=== PATIENT | female | born 1945 | race Caucasian/White ===

== ENCOUNTER 2018-08-03 00:25 | Outpatient (CLI) | payer MEDICARE, OTHER, SELFPAY ==
--- NOTE | 2018-08-03 09:10 | DI.US_ITS ---
SYMPTOM/DIAGNOSIS: H/O OVARIAN CYST, Z87.42, RUQ ABD PAIN, R10.11 ABDOMEN ULTRASOUND: The visualized liver parenchyma is normal in appearance. Note is made of cholelithiasis. No evidence of gallbladder wall thickening, pericholecystic fluid collection or biliary dilatation. Pancreas appears intact as visualized. Abdominal aorta and IVC are of normal diameter. Kidneys are unremarkable in appearance as is the spleen. IMPRESSION: Cholelithiasis. PELVIC ULTRASOUND: Pelvic ultrasound was performed transabdominally only. Please see the Pelvic ultrasound worksheet for measurements of the pelvic structures. There is a 26 by 33 mm. in diameter right ovarian cyst which appears to be a simple cyst. No doppler abnormality of the right ovary. Left ovary unremarkable in appearance. Endometrial stripe is about 3 mm. in thickness and appears homogeneous. No free fluid identified in the cul-de-sac. CONCLUSION: Right ovarian cyst which appears to be a simple cyst measuring about 3.3 cm. in greatest diameter. Visualization of portions of the wall of the apparent cyst is suboptimal. Size of the cyst is unchanged from previous examination of 12/26/15.
== END 2018-08-03 00:45 ==
PROVIDERS: PCP Family Medicine; Visit Provider Family Medicine
DX: R10.11 Right upper quadrant pain (principal); N83.291 Other ovarian cyst, right side; K80.20 Calculus of gallbladder without cholecystitis without obstruction
CPT/HCPCS: 76700; 76856

== ENCOUNTER → 2018-10-15 09:45 | Outpatient (BNVA) | payer MEDICARE, OTHER, SELFPAY | PROVIDERS: PCP Family Medicine; Referring Provider Family Medicine; Visit Provider Surgery | DX: K80.50 Calculus of bile duct without cholangitis or cholecystitis without obstruction (principal) | CPT/HCPCS: 99203 ==

== ENCOUNTER 2019-04-15 01:58 | Outpatient (CLI) | payer MEDICARE, OTHER, SELFPAY ==
--- NOTE | 2019-04-15 15:34 | DI.RAD_ITS ---
EXAM XR RIBS LT W PA LAT CHEST INDICATION: LT SIDED RIB PAIN R07.81. COMPARISON: LEFT RIBS TO INCLUDE CXR from 11/07/2015 TECHNIQUE: 2D digital imaging was performed. FINDINGS: The heart size is normal. The aorta is tortuous, unchanged. The lungs appear clear. No pneumothora x, infiltrate or effusion is seen. A marker was placed over the lateral left lower chest in the area of the patient's pain. The lower ribs are suboptimally penetrated. No fracture is visible. Scolio sis and degenerative changes are noted in the thoracolumbar spine. IMPRESSION: No acute abnormality.
== END 2019-04-15 02:18 ==
PROVIDERS: PCP Family Medicine; Visit Provider Family Medicine
DX: R07.81 Pleurodynia (principal)
CPT/HCPCS: 71046; 71100

== ENCOUNTER 2019-08-02 11:03 | Outpatient (CLI) | payer MEDICARE, OTHER, SELFPAY ==
--- NOTE | 2019-08-02 | DI.RAD_ITS ---
EXAM: XR CERVICAL SPINE COMP 4-5V CLINICAL HISTORY: NECK PAIN, M54.2 COMPARISON: No exams were available for comparison FINDINGS: Five views were obtained. There is straightening of the cervical lordosis. Prevertebral soft tissue s appear intact and tracheolaryngeal structures appear grossly unremarkable. There is disc space narrowing at C 5-6 and C6-7. There are prominent hypertrophic changes involving the vertebral endplates particularly at C5-6 and C6-7. Moderate facet hypertrophic degenerative leo ges are noted throughout the cervical region. The neural foramina appear fairly well maintained. No other significant bony abnormality seen. IMPRESSION: Degenerative changes of the cervical spine as described above, straightening of the cervical lordosis may indicate muscle spasm.
== END 2019-08-02 11:23 ==
PROVIDERS: PCP Family Medicine; Visit Provider Family Medicine
DX: M54.2 Cervicalgia (principal); M50.322 Other cervical disc degeneration at C5-C6 level; M50.323 Other cervical disc degeneration at C6-C7 level; M47.812 Spondylosis without myelopathy or radiculopathy, cervical region
CPT/HCPCS: 72050

== ENCOUNTER 2019-11-10 13:34 | Outpatient (REF) | payer MEDICARE, OTHER, SELFPAY ==
[2019-11-14 10:46] LABS: Syphilis Serology (RPR) Negative (Negative)
[2019-11-14 12:20] LABS: HIV-1/2 Ag & Ab Screen Negative (Negative)
[2019-11-14 12:32] LABS: Hepatitis C Ab w Rflx HCV PCR Negative (Negative)
[2019-11-14 14:45] LABS: Chlamydia Result Negative (Negative); GC Result Negative (Negative)
== END 2019-11-10 13:54 ==
LOC: NCHCN 13:34
PROVIDERS: PCP Family Medicine; Visit Provider Family Medicine
DX: Z11.3 Encounter for screening for infections with a predominantly sexual mode of transmission (principal); Z11.4 Encounter for screening for human immunodeficiency virus [HIV]; Z11.59 Encounter for screening for other viral diseases
CPT/HCPCS: 86803; 87389; 87491; 87591; 86592

== ENCOUNTER 2019-12-13 12:49 | Outpatient (REF) | payer MEDICARE, OTHER, SELFPAY ==
[2019-12-15 15:35] LABS: SARS-CoV-2 RNA Undetected (Undetected); SARS-CoV-2 Specimen Source Nasopharynx
== END 2019-12-13 13:09 ==
LOC: NCHCN 12:49
PROVIDERS: PCP Family Medicine; Visit Provider Nurse Practitioner Family
DX: Z11.59 Encounter for screening for other viral diseases (principal)
CPT/HCPCS: U0003

== ENCOUNTER 2019-12-20 01:29 | Outpatient (CLI) | payer MEDICARE, OTHER, SELFPAY ==
--- NOTE | 2019-12-20 13:35 | DI.RAD_ITS ---
EXAM: XR TIB/FIB LT CLINICAL HISTORY: LT LOWER LEG PAIN,M79.669. TECHNIQUE: 2D digital imaging was performed COMPARISON: No exams were available for comparison FINDINGS: BONES: No acute fracture is present. No bony destructive lesion is seen. Visualized portion of knee a nd ankle joints are unremarkable. Small spur at the plantar surface of the calcaneus. SOFT TISSUE: Normal. IMPRESSION: Unremarkable radiographs of the left tibia and fibula. DATA REPOSITORY: RADIATION DOSE DELIVERED:
== END 2019-12-20 01:49 ==
PROVIDERS: PCP Family Medicine; Visit Provider Family Medicine
DX: M79.662 Pain in left lower leg (principal)
CPT/HCPCS: 73590

== ENCOUNTER → 2020-01-06 09:00 | Outpatient (BNVA) | payer MEDICARE, OTHER, SELFPAY | PROVIDERS: PCP Family Medicine; Referring Provider Family Medicine; Visit Provider Student in an Organized Health Care Education/Training Program | DX: S80.12XA Contusion of left lower leg, initial encounter (principal); W22.8XXA Striking against or struck by other objects, initial encounter | CPT/HCPCS: 99203; 99214 ==

== ENCOUNTER 2020-12-11 13:20 | Outpatient (CLI) | payer MEDICARE, OTHER, SELFPAY ==
--- NOTE | 2020-12-11 | DI.RAD_ITS ---
Exam(s) XR KNEE RT 3V AP,LAT,JULIANNA XR TIB/FIB RT EXAM: XR KNEE RT 3V AP,LAT,JULIANNA CLINICAL HISTORY: RT KNEE PAIN, M25.561 TECHNIQUE: COMPARISON: CR XR TIB/FIB RT from 12/11/2020 CR XR TIB/FIB RT from 12/11/2020 FINDINGS: Three views of the knee and two views of the leg were obtained. There may be slight narrowing of the cartilaginous joint space of the medial tibiofemoral joint. Suspect narrowing of patellofemoral car tilaginous joint space as well. There is a small knee joint effusion. There are mild marginal osteophytes seen involving all 3 joints of the knee. No other bony abnormali ty seen involving the knee. Radiographs of the leg show unremarkable appearance of the tibia and fib rosemarie. 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 RADIATION DOSE DELIVERED: Total DLP
== END 2020-12-11 13:40 ==
PROVIDERS: PCP Family Medicine; Visit Provider Family Medicine
DX: M17.11 Unilateral primary osteoarthritis, right knee (principal)
CPT/HCPCS: 73562; 73590

== ENCOUNTER → 2021-01-28 11:05 | Outpatient (BNVA) | payer MEDICARE, OTHER, SELFPAY | PROVIDERS: PCP Family Medicine; Referring Provider Family Medicine; Visit Provider Student in an Organized Health Care Education/Training Program | DX: M23.91 Unspecified internal derangement of right knee (principal); X50.9XXA Other and unspecified overexertion or strenuous movements or postures, initial encounter | CPT/HCPCS: 99213 ==

== ENCOUNTER 2021-02-07 02:11 | Outpatient (CLI) | payer MEDICARE, OTHER, SELFPAY ==
--- NOTE | 2021-02-07 08:30 | DI.MRI_ITS ---
Exam(s) MR LOWER JOINT RT WO EXAM: MR LOWER JOINT RT WO CLINICAL HISTORY: Rt knee vs tib/fib injury,INTERNAL DERANGEMENT RT KNEE,INSUFFICIENCY FX,. TECHNIQUE: Multiplanar multisequence MRI was performed. COMPARISON: CR XR KNEE RT 3V AP,LAT,JULIANNA from 12/11/2020 FINDINGS: BONES: No evidence of a fracture. Bone contusions involving the medial aspects of the medial femoral condyle and medial tibial plateau. JOINTS: Cartilage thinning is seen in the overlying the medial femoral condyle. Periarticular spurri ng is seen both in the medial lateral femoral tibial joint spaces. There is also cartilage thinning and periarticular spurring at the patellofemoral joint. There is a moderate joint effusion. TENDONS: Extensor mechanism: Unremarkable. Medial retinaculum: Unremarkable. Lateral retinaculum: Unremarkable. Popliteus: The popliteus tendon appears intact. There is hyperintense signal seen in the mid poplite us muscle. The findings are suspicious for a intramuscular tear. MUSCLES: Please see the above discussion. MENISCI: There is body of the posterior horn of the medial meniscus. (Series [id number], image 28). The lateral meniscus is unremarkable. SOFT TISSUES: There is edema seen around the knee particularly the prepatellar soft tissues. No foca l fluid collection is seen. LIGAMENTS: Anterior Cruciate: Unremarkable. Posterior Cruciate: Unremarkable. Medial Collateral:There is fluid edema seen around the medial collateral ligament which may represent a sprain. Lateral Collateral: Unremarkable. OTHER: IMPRESSION: 1. Abnormal signal in the posterior horn of the medial meniscus suspicious for tear. 2. MCL sprain. 3. Hyperintense signal seen in the popliteus muscle suspicious for tear. Please correlate with the p atient's clinical history. 4. Degenerative changes in the knee. 5. Marrow contusions in the medial femoral condyle and medial tibial plateau. No fracture is identif ied. DATA REPOSITORY:
== END 2021-02-07 02:31 ==
PROVIDERS: PCP Family Medicine; Visit Provider Physician Assistant Surgical
DX: M17.11 Unilateral primary osteoarthritis, right knee; S83.411A Sprain of medial collateral ligament of right knee, initial encounter; T14.8XXA Other injury of unspecified body region, initial encounter; X58.XXXA Exposure to other specified factors, initial encounter
CPT/HCPCS: 73721

== ENCOUNTER → 2021-02-13 09:27 | Outpatient (BNVA) | payer MEDICARE, OTHER, SELFPAY | PROVIDERS: PCP Family Medicine; Referring Provider Family Medicine; Visit Provider Physician Assistant | DX: M17.11 Unilateral primary osteoarthritis, right knee (principal); M23.91 Unspecified internal derangement of right knee | CPT/HCPCS: 20610; J1040 ==

== ENCOUNTER → 2021-04-01 09:49 | Outpatient (BNVA) | payer MEDICARE, OTHER, SELFPAY | PROVIDERS: PCP Family Medicine; Referring Provider Family Medicine; Visit Provider Student in an Organized Health Care Education/Training Program | DX: M23.91 Unspecified internal derangement of right knee (principal); M17.11 Unilateral primary osteoarthritis, right knee; Z98.890 Other specified postprocedural states | CPT/HCPCS: 99213 ==

== ENCOUNTER → 2021-04-29 10:04 | Outpatient (BNVA) | payer MEDICARE, OTHER, SELFPAY | PROVIDERS: PCP Family Medicine; Referring Provider Family Medicine; Visit Provider Student in an Organized Health Care Education/Training Program | DX: M17.11 Unilateral primary osteoarthritis, right knee (principal); M23.91 Unspecified internal derangement of right knee | CPT/HCPCS: 99213 ==

== ENCOUNTER → 2021-10-15 00:27 | Outpatient (CLI) | payer MEDICARE, OTHER, SELFPAY ==
--- NOTE | 2021-10-15 | DI.RAD_ITS ---
Exam(s) XR KNEE LT 3V AP,LAT,JULIANNA EXAM: XR KNEE LT 3V AP,LAT,JULIANNA CLINICAL HISTORY: LT KNEE PAIN, M25.562. TECHNIQUE: 2D digital imaging was performed. Three views. COMPARISON: none FINDINGS: BONES: No acute fracture is present. No bony destructive lesion is seen. JOINTS: There is moderate narrowing of the medial femoral tibial joint space, mild periarticular spur ring and sclerosis. There is minimal spurring at the patellofemoral joint. No definite joint effus ion.. No joint effusion is seen. SOFT TISSUE: Normal. IMPRESSION: Moderate degenerative changes of the medial femoral tibial joint. DATA REPOSITORY: RADIATION DOSE DELIVERED:
== END ==
PROVIDERS: PCP Family Medicine; Visit Provider Family Medicine
DX: M25.562 Pain in left knee (principal); M17.11 Unilateral primary osteoarthritis, right knee
CPT/HCPCS: 73562

== ENCOUNTER 2021-11-04 03:30 | Outpatient (CLI) | payer MEDICARE, OTHER, SELFPAY ==
[2021-11-04 12:35] LABS: ALT 31 U/L (14-59); AST 18 U/L (15-37); Albumin 4.1 g/dL (3.4-5.0); Alkaline Phosphatase 82 U/L (46-116); Anion Gap 6.2 mmol/L (3-11); BUN 25 mg/dL (7-18); Bilirubin, Total 0.6 mg/dL (0.2-1.0); CO2 28.8 mmol/L (21.0-32.0); CREATININE 0.5 mg/dL (0.55-1.02); Calcium 9.2 mg/dL (8.5-10.1); Calculated LDL 143 mg/dL (<100); Chloride 102 mmol/L (98-107); Cholesterol 249 mg/dL (<200); Glucose 103 mg/dL (74-106); HDL Cholesterol 82 mg/dL (40-60); Potassium 3.9 mmol/L (3.5-5.1); Sodium 137 mmol/L (136-145); Total Protein 7.1 g/dL (6.4-8.2); Triglyceride 121 mg/dL (<150)
== END 2021-11-04 03:31 | disposition home or self-care (01) ==
LOC: LBO 03:30
PROVIDERS: PCP Family Medicine; Visit Provider Family Medicine
DX: M25.561 Pain in right knee (principal); M25.562 Pain in left knee; Z79.1 Long term (current) use of non-steroidal anti-inflammatories (NSAID)
CPT/HCPCS: 36415; 80053; 80061; 83036

== ENCOUNTER → 2022-02-25 02:32 | Outpatient (CLI) | payer MEDICARE, OTHER, SELFPAY ==
--- NOTE | 2022-02-25 09:15 | DI.US_ITS ---
Exam(s) US PELVIS EXAM: US PELVIS CLINICAL HISTORY: BILAT PELVIC PAIN, H/O OVARIAN CYST, Z87.42. TECHNIQUE: Transabdominal pelvic ultrasound was performed using standard protocol. COMPARISON: US US abdomen pelvis from 08/03/2018 FINDINGS: The patient elected to forego the transvaginal portion of the examination. UTERUS: Position: Anteverted. Size: 7.6 long by 3.2 AP by 3.0 transverse cm Endometrium: 0.4 cm. Normal for patient's menstrual status. Myometrium: Unremarkable. Cervix: Unremarkable. OVARIES: Right: 3.6 x 5.0 x 3.3 cm Cyst or mass: 2 cysts are seen in the right ovary. The larger measures 2.9 x 3 x 3.1 cm. The smalle r measures 1.6 x 1.5 x 1.6 cm. Left: 1.4 x 1.2 x 1.9 cm Cyst or mass: No suspicious cystic or solid masses. DOPPLER: Color: Color flow could not be obtained in the ovaries at this time. CUL-DE-SAC: Free fluid: None. Other: None. IMPRESSION: 1. Transabdominal only examination. The patient elected to forego the transvaginal examination. 2. Normal-appearing uterus with endometrial stripe within normal limits. 3. Two right ovarian cysts measuring 2.9 x 3 x 3.1 cm and 1.6 x 1.5 x 1.6 cm. If further evaluation is warranted, an MRI may be considered. DATA REPOSITORY:
== END ==
PROVIDERS: PCP Family Medicine; Visit Provider Family Medicine
DX: R10.2 Pelvic and perineal pain (principal); Z87.42 Personal history of other diseases of the female genital tract; N83.291 Other ovarian cyst, right side
CPT/HCPCS: 76856

== ENCOUNTER → 2022-03-25 02:45 | Outpatient (CLI) | payer MEDICARE, OTHER, SELFPAY ==
--- NOTE | 2022-03-25 | DI.MRI_ITS ---
Exam(s) MR PELVIS WO/W EXAM: MR PELVIS WO/W CLINICAL HISTORY: RT LOWER QUAD ABD PAIN, R10.31, OVARIAN CYST COMPARISON: Ultrasound 02/25/2022 TECHNIQUE: Multisequence MRI scan of pelvis was performed both pre and post contrast infused sequence s. Contrast infused was 14 mL Dotarem. FINDINGS: UTERUS: Anteverted. There is a 2 x 2 cm fibroid at the level of the uterine fundus. Endometrial stri pe measures 3-4 millimeters. Is age-appropriate and there is no obvious abnormality of the junctional zone evident. Tiny nabothian cysts noted in upper cervix. RIGHT OVARY: Abnormally enlarged and cystic. Measures 4.5 by 2.9 cm. Contains multiple nonenhancing cysts, the largest measuring 3 by 2.9 cm. Smallest measuring 4 millimeters. There is no mural nodu larity nor thick septations. LEFT OVARY: Small nonenhancing cyst measuring 12 x 12 millimeters. URINARY BLADDER: No obvious abnormality. Not distended. LYMPH NODES: No intrapelvic nor inguinal adenopathy evident. FREE FLUID: None OSSEOUS: Hips and visualized pelvic bones appear age-appropriate. No fractures nor avascular necrosi s. GI: Is sigmoid diverticulosis but no evidence of acute diverticulitis. IMPRESSION: 1. Benign-appearing right ovarian cysts as described above, the largest measuring approximately the 3 x 3 cm. There is no normal nodularity nor significantly thickened internal septations to suggest erik t this is malignancy. 2. There is a 2 x 2 cm fundal fibroid. Endometrium is age-appropriate. 3. No free fluid in the pelvis. DATA REPOSITORY:
[2022-03-25 12:32] LABS: CREATININE 0.8 mg/dL (0.55-1.02); Estimated GFR 76.31 (mL/min/1.73m2)
[2022-03-25] MEDS: Normal Saline Flush 10 ML SYR IVP (12:38)
--- NOTE | 2022-03-25 16:38 | DI.VRAD_ITS ---
PROCEDURE INFORMATION: Exam: MR Pelvis Without and With Contrast; Uterus and Adnexa Exam date and time: 03/25/2022 12:07 PM Age: 76 years old Clinical indication: Pelvic pain TECHNIQUE: Imaging protocol: Magnetic resonance imaging of the pelvis without and with contrast. Exam focused on the uterus and adnexa. Contrast material: DOTAREM; Contrast volume: 14 ml; Contrast route: INTRAVENOUS (IV); COMPARISON: 1. US PELVIS TRANSVAG 12/26/2015 7:07 PM 2. US PELVIS 02/25/2022 9:28 AM FINDINGS: Uterus: Uterus measures 7.4 x 3.3 x 4.4 cm. Intramural midline uterine fundal fibroid. This measures 2.9 x 2.5 x 2.8 cm. Diffuse enhancement of this fibroid. No abnormal thickening of the endometrium or the junctional zone. Cervix: Tiny cervical nabothian cysts. Right ovary/adnexa: 3.1 x 3.0 x 3.5 cm right ovarian cyst, containing a thin enhancing septation. No internal nodularity or nodular enhancement. 2.3 cm x 1.9 cm x 1.9 cm right ovarian cyst, containing no internal septations or nodularity. No enhancement. Left ovary/adnexa: Tiny nonenhancing left ovarian cysts, measuring up to 1.2 x 0.6 x 1.4 cm. Urinary bladder: Bladder is nondistended, limiting evaluation. Intraperitoneal space: No free fluid. Soft tissues: Unremarkable. Other findings: Mild degenerative change of the spine. Small left hip joint effusion. Mild bilateral hip joint DJD. Small symmetric disc bulges at L4-L5 and L5-S1. Colonic diverticulosis. IMPRESSION: 1. Fibroid uterus. 2. Chronic 3.5 cm right ovarian cyst, which has been present since 2015. No evidence of a solid component. Additional simple appearing 2.3 cm right ovarian cyst. Please note that this is a preliminary report. The separate, final report is to follow. Dictated and Authenticated by: Zeenat Chao MD. Ordering:MARIOLA Donahue MD
== END ==
PROVIDERS: PCP Family Medicine; Visit Provider Family Medicine
DX: D25.9 Leiomyoma of uterus, unspecified (principal); N83.201 Unspecified ovarian cyst, right side
CPT/HCPCS: 72197; 82565

== ENCOUNTER 2022-06-23 00:17 | Outpatient (CLI) | payer MEDICARE, OTHER, SELFPAY ==
--- NOTE | 2022-06-23 08:15 | DI.US_ITS ---
Exam(s) US ABDOMEN LIMITED EXAM: US ABDOMEN LIMITED CLINICAL HISTORY: INTERMITTENT ABD PAIN, RUQ, R10.11; H/O GALLSTONES, Z87.19 TECHNIQUE: Ultrasound abdomen performed using standard protocol. COMPARISON: No exams were available for comparison FINDINGS: LIVER: Normal size and echogenicity. No focal liver lesions are seen.. GALLBLADDER: Several stones noted less than 1 cm in size.. No evidence of wall thickening. No perich olecystic fluid identified. PORTILLO'S SIGN: Negative. BILIARY SYSTEM: No intrahepatic or extrahepatic biliary ductal dilation. Right KIDNEY: No evidence of renal calculi. No evidence of hydronephrosis. No renal mass or cyst iden tified. PANCREAS: Normal where visualized. ASCITES: None seen. IMPRESSION: Cholelithiasis. DATA REPOSITORY:
== END 2022-06-23 00:37 ==
PROVIDERS: PCP Family Medicine; Visit Provider Family Medicine
DX: K80.20 Calculus of gallbladder without cholecystitis without obstruction (principal)
CPT/HCPCS: 76705

== ENCOUNTER → 2022-07-24 11:37 | Outpatient (BNVA) | payer MEDICARE, OTHER, SELFPAY | PROVIDERS: PCP Family Medicine; Referring Provider Family Medicine; Visit Provider Student in an Organized Health Care Education/Training Program | DX: M17.11 Unilateral primary osteoarthritis, right knee (principal) | CPT/HCPCS: 99214 ==

== ENCOUNTER 2022-11-27 02:10 | Outpatient (CLI) | payer MEDICARE, SELFPAY ==
[2022-11-27 15:56] LABS: HCT 39.6 % (36.0-46.0); HGB 13.7 g/dL (11.2-15.7); MCH 32.5 pg (27.0-33.0); MCHC 34.6 % (32.0-36.0); MCV 94 fL (80-95); MPV 9.9 fL (8.0-11.0); Platelet Count 275 10^3/uL (130-400); RBC 4.21 10^6/uL (3.93-5.22); RDW 12.8 % (11.7-14.6); RDW-SD 44.3 fL; WBC 4.47 10^3/uL (4.4-10.8)
[2022-11-27 16:22] LABS: Anion Gap 7.9 mmol/L (3-11); BUN 16 mg/dL (7-18); CO2 28.1 mmol/L (21.0-32.0); CREATININE 0.8 mg/dL (0.55-1.02); Calcium 9.7 mg/dL (8.5-10.1); Chloride 105 mmol/L (98-107); Estimated GFR 76.31 (mL/min/1.73m2); Glucose 96 mg/dL (74-106); Sodium 141 mmol/L (136-145)
== END 2022-11-27 02:11 | disposition home or self-care (01) ==
LOC: LBO 02:10
PROVIDERS: PCP Family Medicine; Visit Provider Student in an Organized Health Care Education/Training Program
DX: Z01.818 Encounter for other preprocedural examination (principal); M23.91 Unspecified internal derangement of right knee; M17.11 Unilateral primary osteoarthritis, right knee
CPT/HCPCS: 36415; 80048; 85027; 73560; 77073

== ENCOUNTER 2022-11-27 13:11 | Outpatient (CLI) | payer MEDICARE, SELFPAY ==
--- NOTE | 2022-11-27 14:50 | DI.RAD_ITS ---
Exam(s) XR STANDING ALIGNMENT XR KNEE RT 1V EXAM: XR STANDING ALIGNMENT and XR knee RT 1 V CLINICAL HISTORY: pre op R TKA. TECHNIQUE: 2D digital imaging was performed. Five images were obtained. COMPARISON: CR XR TIB/FIB RT from 12/11/2020 CR XR KNEE LT 3V AP,LAT,JULIANNA from 10/15/2021 FINDINGS: BONES: Mild degenerative changes are seen in the hips bilaterally. There are marked degenerative craig nges seen in the right knee particularly the patellofemoral joint characterized by joint space narrow ing and bony hypertrophy. There are also marked degenerative changes seen in the left knee with join t space narrowing and periarticular spurring seen in the medial femoral tibial joint. The ankles are well maintained.There is no significant leg length discrepancy. SOFT TISSUE: Normal. IMPRESSION: Osteoarthritis of the knees bilaterally. DATA REPOSITORY: RADIATION DOSE DELIVERED:
== END 2022-11-27 13:12 | disposition home or self-care (01) ==
LOC: DIORS 13:11
PROVIDERS: PCP Family Medicine; Referring Provider Family Medicine; Visit Provider Physician Assistant
DX: M17.11 Unilateral primary osteoarthritis, right knee (principal); Z01.818 Encounter for other preprocedural examination
CPT/HCPCS: 73560; 77073

== ENCOUNTER 2022-12-02 07:30 | Day surgery (SDC) | payer MEDICARE, SELFPAY ==
[2022-12-02] VITALS (12 sets, daily range): BP systolic 101–169; BP diastolic 51–96; PULSE 57–68; RESP 14–18; TEMP 36.3–36.5; O2SAT 97–100; BMI 23.1
--- NOTE | 2022-12-02 06:00 | RT.EKG_ITS ---
APPROVED REPORT Exam: Resting ECG Reason for Exam: Pre op Patient Location: O HR:54 bpm ECG Measurements Heart Rate 54 AXIS MT 194 P 74 QRSd 99 QRS 71 QT 415 T -1 QTc 394 Conclusion Sinus bradycardia...rate< 60 Probable left atrial enlargement...P >50mS, <-0.10mV V1 Low voltage, precordial leads...precordial leads <1.0mV
--- NOTE | 2022-12-02 06:27 | W.ANESPRE ---
General Info Date of Service Date Performed: 12/02/22 Height: 5 ft 5.25 in Weight: 63.503 kg Body Mass Index (BMI): 23.1 Surgical Procedure: Operation Date: 12/02/22 09:40 Proposed Procedure Side Surgeon p Knee Total Arthroplasty, Cementless CR Right Rupert Campbell MD Meds Allergies and Home Medications Allergies Allergy/AdvReac Type Severity Reaction Status Date / Time codeine Allergy Unknown UNKNOWN Verified 12/02/22 07:43 gluten Allergy Unknown Other (See Unverified 12/01/22 12:23 Comment) Penicillins Allergy Unknown UNKNOWN Verified 12/02/22 07:43 mushrooms AdvReac Mild makes me Uncoded 12/01/22 12:23 cry Home Medication Medication Instructions Recorded magnesium gluconate 30 mg (550 mg) 75 mg PO DAILY 08/11/12 tablet cholecalciferol (vitamin D3) 125 5,000 unit PO DAILY 07/03/14 mcg (5,000 unit) tablet zoster vaccine live (PF) 19,400 0.5 ml SQ ONCE #1 vial 07/03/14 unit/0.65 mL subcutaneous suspension (Zostavax (PF)) calcium carbonate 500 mg calcium 500 mg PO DIRECTED 01/25/15 (1,250 mg) chewable tablet ascorbic acid (vitamin C) 1,000 mg 1,500 mg PO DAILY 11/14/15 chewable tablet oxybutynin chloride 10 mg 10 mg PO DAILY 07/24/22 tablet,extended release 24 hr acetaminophen 500 mg tablet 1,000 mg PO Q8H PRN pain #90 tabs 12/02/22 aspirin 81 mg tablet,delayed 81 mg PO BID 30 days #60 tabs 12/02/22 release celecoxib 200 mg capsule (Celebrex) 200 mg PO BID PRN #60 caps 12/02/22 dexamethasone 4 mg tablet 4 mg PO DAILY #2 tabs 12/02/22 docusate sodium 100 mg capsule 100 mg PO BID #30 caps 12/02/22 (Colace) gabapentin 300 mg capsule 300 mg PO QHS #14 caps 12/02/22 oxycodone 5 mg tablet 5 mg PO Q4H PRN #18 tabs 12/02/22 pantoprazole 40 mg tablet,delayed 40 mg PO DAILY 14 days #14 tabs 12/02/22 release Current Visit Medications: Current Medications Generic Name Dose Route Start Last Admin Trade Name Freq PRN Reason Stop Dose Admin Acetaminophen 1,000 mg 12/02/22 06:00 Acetaminophen 500 Mg Tab PO 12/02/22 16:00 PREOP GAURI Celecoxib 400 mg 12/02/22 06:00 Celecoxib 200 Mg Cap PO 12/02/22 16:00 PREOP GAURI Gabapentin 300 mg 12/02/22 06:00 Gabapentin 300 Mg Cap PO 12/02/22 16:00 PREOP GAURI Tranexamic Acid 1,000 mg/ 60 mls @ 360 mls/hr 12/02/22 06:00 Sodium Chloride IVPB 12/02/22 16:00 PREOP GAURI Ringer's Solution 1,000 mls @ 80 mls/hr 12/02/22 06:00 IV 12/31/22 23:59 INFUSION GAURI Cefazolin Sodium/Dextrose 2 gm in 50 mls @ 100 mls/hr 12/02/22 06:00 Ancef Duplex IVPB 12/31/22 23:59 PREOP GAURI IV Miscellaneous Supplies 1 each 12/02/22 06:00 Iv Access IV 12/31/22 23:59 DIRECTED GAURI Sodium Chloride 0 ml 12/02/22 06:00 Normal Saline Flush 10 Ml Syr IV 12/31/22 23:59 PRN PRN Sodium Chloride 0 ml 12/02/22 06:00 Normal Saline 10 Ml Vial IJ 12/31/22 23:59 DIRECTED PRN Sterile Water 0 ml 12/02/22 06:00 Water,Injection,Sterile 10 Ml Vial IJ 12/31/22 23:59 DIRECTED PRN PFSH Active Problems Active Problems: Problem Status Onset Code Hx of ovarian cyst Z87.42 Gallstones K80.20 Contusion of left tibia S80.12XA Unspecified hearing loss, left ear H91.92 Abnormal auditory perception 12/24/15 H93.299 Internal derangement of right knee M23.91 Degenerative joint disease of right knee M17.11 Medical History Medical History Abdominal pain Constipation Fibrocystic disease of breast Gallbladder polyp Hyperlipidemia She denies INTESTINAL PROBLEMS Memory deficit Mitral valve disease PER PT. STATES MITRAL VALVE PROLAPSE. STATED SHE HAD IT WORKED UP WITH SUZANNE A WHILE AGO WAS TOLD NOT TO WORRY ABOUT IT. Overweight Urge incontinence of urine Surgical History Surgical History Appendectomy (~2) Colonoscopy - IV Sedation (~2006) & 2000 IN [place] Tonsillectomy (~1950) Tobacco Smoking/Tobacco Use Status: Never Alcohol Alcohol Intake: current Alcohol intake frequency: a few times a week Alcohol type: wine Substance Use Substance use: Never Substance use type: does not use Vital Signs and Lab Results Vital Signs Most Recent Vital Signs in EMR: Temp Pulse Resp BP Pulse Ox 36.5 C 66 16 131/96 H 99 12/02/22 07:46 12/02/22 07:46 12/02/22 07:46 12/02/22 07:46 12/02/22 07:46 Lab Results Blood Type / Crossmatch: No Data to Display Complete Blood Count: White Blood Count 4.47 10^3/uL (4.4-10.8) 11/27/22 15:35 Red Blood Count 4.21 10^6/uL (3.93-5.22) 11/27/22 15:35 Hemoglobin 13.7 g/dL (11.2-15.7) 11/27/22 15:35 Hematocrit 39.6 % (36.0-46.0) 11/27/22 15:35 Platelet Count 275 10^3/uL (130-400) 11/27/22 15:35 Complete Metabolic Panel: Sodium 141 mmol/L (136-145) 11/27/22 15:35 Potassium 4.0 mmol/L (3.5-5.1) 11/27/22 15:35 Chloride 105 mmol/L (98-107) 11/27/22 15:35 Carbon Dioxide 28.1 mmol/L (21.0-32.0) 11/27/22 15:35 BUN 16 mg/dL (7-18) 11/27/22 15:35 Creatinine 0.8 mg/dL (0.55-1.02) 11/27/22 15:35 Est GFR (CKD-EPI 2020) 76.31 (mL/min/1.73m2) 11/27/22 15:35 Calcium 9.7 mg/dL (8.5-10.1) 11/27/22 15:35 Glucose 96 mg/dL (74-106) 11/27/22 15:35 Liver Function Panel: No Data to Display Coagulation Panel: No Data to Display Cardiac Panel: No Data to Display Arterial Blood Gas: No Data to Display Venous Blood Gas: No Data to Display Pancreas Panel: No Data to Display Thyroid Panel: No Data to Display Infectious Disease: No Data to Display Blood Cultures: No Data to Display Toxicology Panel: No Data to Display Imaging and Studies Imaging and Studies Study information below may be from another EMR and interpreted by another provider. Please see original notes in EMR for more complete details. EKG Summary: 12/02/22: sinus samy, ?LAE Echocardiogram Summary: 08/26: LVEF 65-70%, mild MR, PAS 20-30 mmhg. Anesthesia Assessment and Plan Anesthesia History Personal History: No History of Anesthesia Complications Family History: No Family History of Anesthesia Complications Exercise Tolerance Exercise Tolerance: Metabolic Equivalents>4 Cardiac & Pulmonary Exam Cardiac Exam: Normal S1/S2 Heart Sounds Pulmonary Exam: Clear Bilateral Breath Sounds Implantable Cardiac Device Does patient have a Pacemaker or an ICD?: No Airway Exam Known Difficult Airway: No Mallampati Class: 3 Mouth Opening: Normal (> 3cm) Thyromental Distance: Greater than 3 cm Neck Range of Motion: Full ROM Neck Circumference: Normal Teeth Condition: Normal Dentition ASA Classification ASA Score: ASA 2 Emergency Case?: No NPO Status NPO Status: NPO Clears >2 hours, Solids >8 hours Anesthesia Plan Resuscitation Status: Full Code Anesthesia Technique: Spinal Anesthesia Airway Planned: Natural Airway Pain Management: Surgeon and patient request nerve block Monitors Used: Standard Monitors Preoperative Comments:: 76 yo female TKA. Sig PMHx: GERD (rare, controlled with papaya enzyme when it happens), never smoker, occ EtOH, Chest pain (recent endorsement of chest pain, but with chocolate, no exertion, EKG unremarkable).
[2022-12-02] MEDS: Celecoxib 200 MG CAP 400 MG PO (08:03)
[2022-12-02] MEDS: Gabapentin 300 MG CAP PO (08:03)
[2022-12-02] MEDS: Acetaminophen 500 MG TAB 1000 MG PO (08:03)
[2022-12-02] MEDS: Lactated Ringers 1,000 ML 80 ML IV (08:22)
[2022-12-02] MEDS: ceFAZolin 2 GM/50 ML BAG IVPB (09:00)
--- NOTE | 2022-12-02 09:15 | W.ANESNERVE ---
Nerve Block Single Injection Procedure Date and Time Date Performed: 12/02/22 Procedure Start: 08:45 Location Where Procedure Performed Procedure Location: Day Surgery Unit Reason Performed: Postoperative Analgesia Requesting Provider: Rupert Campbell Timeout Performed Timeout Performed: Yes Monitoring Used ECG, Blood Pressure and SpO2 Sterility Sterility: Hand Hygiene, Surgical Cap, Surgical Mask, Sterile Gloves and Chlorhexidine Sedation Given During Procedure Sedation Given (Indicate Dose Given): No Sedation given Patient Mental Status Patient Mental Status: Awake Nerve Block 1st Nerve Block: Laterality: Right Block Type: Adductor Canal Ultrasound Image Saved?: Yes Needle / Catheter Used: 100mm SonoPlex II Local Anesthetic Bolus (Indicate Dose Given): Lidocaine used for local infiltration of skin and Bupivacaine 0.375% Dose:: 11 mL Additives (Indicate Dose Given): None Ultrasound: Sterile probe cover and gel used Nerve Stimulator: Supplement to Ultrasound use and No twitch or parasthesia noted < 0.5 mA Paresthesia: None Procedure Tolerated: No Complications Procedure Outcome: Successful Performed By: Uziel Worthy
[2022-12-02] MEDS: HYDROmorphone 2 MG/ML SYR IVP ×2 (11:11→11:21)
[2022-12-02] MEDS: Normal Saline 10 ML VIAL IJ (11:11)
--- NOTE | 2022-12-02 11:34 | W.ANESPOSTOP ---
Postoperative Evaluation Date, Time and Location Date Performed: 12/02/22 Time Performed: 11:34 Patient Location: PACU Vital Signs Most Recent Imported Vital Signs: Most Recent Vital Signs Temp Pulse Resp BP Pulse Ox 36.3 C L 57 L 14 145/87 H 98 12/02/22 11:30 12/02/22 11:30 12/02/22 11:30 12/02/22 11:30 12/02/22 11:30 Pain Score Most Recent Pain Score: Most Recent Pain Score Pain Level 7 12/02/22 11:30 Assessment Mental Status: Awake (Alert & Oriented to Patient Baseline) Airway and Respiratory Function: Patent airway with normal (patient baseline) respiratory exam Cardiovascular Function: Hemodynamically Stable Hydration Status: Adequately Hydrated Nausea & Vomiting: No Nausea or Vomiting Pain: Pain is tolerable per patient Peripheral Nerve Block: Regional nerve block not resolved at time of post operative discharge
--- NOTE | 2022-12-02 12:01 | W.PM.OP ---
Date of service: 12/02/22 Time of Service: 10:30 Operative Note Operative Note DATE OF PROCEDURE: 12/02/22 PRE-OP DIAGNOSIS: Right Knee Osteoarthritis POST-OP DIAGNOSIS: same PROCEDURE: Right Total Knee Replacement SURGEON: Rupert Campbell MATERIALS RECYCLER: Corinna Mckeon ANESTHESIA TYPE: Spinal Refer to Anesthesia Record PATHOLOGY: none sent TOURNIQUET TIME: 0 COMPLICATIONS: None Patient was transported to: PACU Patient's condition: stable Implants: 1. Depuy Attune Cementless Cruciate Retaining Femoral Component, Size 5 2. Depuy Attune Cementless Fixed Bearing Tibial Component, Size 4 3. Depuy Attune 5x7mm CR/FB Poly 4. Depuy Attune Patellar Component, Size 35 Indications: I have seen Olivia in clinic for symptoms of RIGHT knee arthritis, confirmed with radiographic findings. Olivia has exhausted nonoperative methods and was having significant limitations in daily function and desired better function and less pain. I discussed the technical details of a knee replacement. I explained the risks of the procedure to include, but not limited to, bleeding, infection, pain, stiffness, fracture, damage to nerves and vessels, damage to muscles and tendons, loosening, need for repeat procedure, blood clot and cardiopulmonary demise. Despite these risks, she elected to proceed. Findings: There was significant signs of arthritis throughout the knee, most impressive of the patella but throughout all 3 compartments. Procedure Description: Olivia was greeted in the preoperative holding area where the correct side was identified and marked. The consent was reviewed with the patient and signed. The history and physical was updated. All questions were answered. Preoperative medications were administered: Acetaminophen 1000mg, Celebrex 400mg, and Gabapentin 300mg. An adductor canal block was then administered by the anesthesia team in the PACU. Olivia was taken back to the operating room. A spinal anesthestic was then administered. The patient was placed into the supine position on the operating room table. A nonsterile tourniquet was placed high onto the leg but only used for cementing. Posts were placed for positioning during the procedure. All bony prominences were well padded. Prophylactic antibiotics in the form of Cefazolin were administered. 1g of Tranxemic Acid was given intravenously within 30 minutes of incision. The right leg was then prepped with Chloraprep and draped in a standard fashion with impervious stockinette. A second prep with Chloraprep was performed prior to application of Iodine impregnated skin protection. A timeout to confirm correct identity, side and site, procedure, allergies, anesthesia, and medical concerns was performed. With the knee in some flexion, a midline incision was made overlying the knee. Full thickness skin flaps were raised once the extensor mechanism was encountered. These were raised medially and laterally. Any bleeding was controlled with electrocautery. Once the extensor mechanism was fully exposed, a medial parapatellar arthrotomy was performed in a flexed position. All bleeding from the arthrotomy and the geniculate arteries was coagulated. A medial subperiosteal peel was performed with electrocautery to the midcoronal plane. The fat pad was removed while keeping the patellar tendon protected. The anterior distal femur synovium was removed for later visualization. The ACL and PCL were resected and the anterior horn of the lateral meniscus was transected. The knee was then flexed with the patella everted. Large osteophytes from the tibia were removed. Large osteophytes from the femur were removed. Using a step drill, and based on preoperative templating, the femoral canal was entered. This was done with a step drill without any difficulty. The intramedullary distal femoral cut guide was inserted, set to a 4 degree valgus cut and 9mm cut thickness. The distal femoral cut guide was then held in position and pinned. With the soft tissues protected, the distal cut was performed. This was passed over a few times to ensure a planar cut. I then turned attention to the tibia. The extramedullary guide was placed onto the leg. The distal aspect was slid medial to adjust for position of center of ankle and stay in line with shaft of the tibia. Approximately 3-5 degrees of posterior slope was kept in the proximal cutting guide. The center of the guide was aligned with the PCL. The stylus was used to assess cut thickness. The medial side, most involved side, was set for a 4mm cut. This was then held in position and pinned into place with 2 additional pins and a cross pin for stability. The medial and lateral collateral ligaments were protected and the cut was performed. With this completed, it was assessed and noted to be of appropriate dimensions. The guide was removed. A spacer block was inserted and the knee was brought into extension. The 7mm spacer block provided full extension, without hyperextension and with stability of both the medial and lateral collateral ligaments was assessed. The pins from the femur and the tibia were then removed. The distal femur was then sized. The anterior stylus was placed onto the lateral ridge of the anterior femur. This indicated a size 5 femur. The external rotation of the guide was adjusted to 3 degrees to match the epicondylar axis, perpendicular to [place]?s line. The 4-in-1 cutting guide was the placed. The posterior medial femur cut was evaluated and appeared of good thickness. The spacer block was inserted underneath the cutting guide and stability was confirmed in 90 degrees of flexion. An amy wing was used to confirm appropriate position of the anterior cut to avoid notching. This cutting guide was ensured to be flush on the cut surface and then pinned into place with headed pins. While protecting the soft tissues, quad tendon, and collateral ligaments, the anterior and posterior cuts were performed with a saw. The central two pins were removed and the posterior and anterior chamfers were cut next. The notch-cutting guide was placed. This was pinned to lateralize the femoral component as much as possible while keeping it flush on the cut surface. This was then pinned into position. A reciprocating saw was used to make the notch cut. A rasp smoothed the cut surfaces. The medial and lateral menisci were removed. A trial femoral component was then inserted, impacted down to the cut surfaces, and the lug holes were drilled. A provisional trial tibial component was placed and the knee was brought through range of motion. There was noted to be excellent extension and flexion. There was no significant instability. The patella was tracking without thumbs. A size 7mm polyethylene component provided the best range of motion and stability with less than 2mm gapping with medial and lateral stress and full extension without significant hyperextension. The tibial cut surface was fully exposed. The tibia was then sized as a 4. The tibia had been previously marked during trialing to correspond to the center of the tibial component to help with rotation. The trial was aligned to this tala, approximately rotated to the medial 1/3rd of the tibial tubercle. The trial was pinned into place. The tibia was prepared with a reamer and a keel punch and lug holes. The knee was then brought into extension and the patella was measured as 20mm. Using the patellar clamp and cut guide, this was resected to a flat surface with at least 13mm of thickness remaining. The size 35 patella fit the best. This was oriented and then clamped into position. The lugs were drilled. The trial components were removed. The final components were opened on the back table. The periosteal and capsular tissues, especially posteriorly, around the knee were then systematically injected with a periarticular cocktail consisting of 246mg of Ropivacaine, 0.5mg of Epinephrine, 0.08mg of Clonidine, and 30mg of Ketorolac, diluted to 100cc. On the back table, with the implants opened, the cement was mixed. One batch of high viscosity cement was prepared with vacuum assistance. After the cement was ready a small amount was placed on the cut surface of the patella and the patellar button was clamped into position and held. While the cement was hardening, the cementless knee components were placed. Starting with the tibial component, the tibia was subluxed anteriorly and the lug holes of the component were lined up. The tibia was then impacted with an impactor and mallet until the tibial component was in contact with the tibia. Then, the femoral component was inserted. The lug holes were aligned and the component was impacted into position. The final polyethylene component was inserted. The knee was irrigated with Surgiphor Betadine solution. This was allowed to sit in the knee for 3 minutes and then it was irrigated out with saline. After the cement had finally cured, approximately 15min, the clamp was removed from the patella and the knee was taken through range of motion. The patella was tracking with a no-thumbs technique. The capsule was then reapproximated with a No. 1 Vicryl at multiple locations. The capsule was finally closed with a No. 2 Stratafix, barbed suture. The second dosing of 1g TXA was started. Deep tissues were then reapproximated with 0 Vicryl and 2-0 Vicryl. The skin was closed with a running 3-0 Monocryl in a subcuticular fashion. This was reinforced with skin glue. A Mepilex silver dressing was applied along with a [id number] GUERO wrap. A CryoCuff was applied. Olivia was transferred to the hospital bed without difficulty an suffering no apparent complication. Olivia has a good prognosis. Physical therapy will start today and without restrictions, weight-bearing as tolerated. Aspirin 81mg BID will be used for DVT prophylaxis.
[2022-12-02] MEDS: oxyCODONE 5 MG TAB PO (12:08)
--- NOTE | 2022-12-02 14:10 | IN_ITS ---
PT Notes Visit Reasons: Right knee DJD Date: 12/02/2022 Referring: Rupert Campbell MD MD diagnosis: Osteoarthritis right knee status post right TKA PT diagnosis: Status post right TKA Subjective: Alert and oriented x3 with mild lethargic complaining of some tightness throughout the posterior lateral aspect of the right knee particula rly with weightbearing activities. Objective: A 76-year-old female with osteoarthritis of the right knee status post right TKA earlier today. Functional mobility: Independent assuming the supine to sitting to standing positions with standby supervision. She transfers safely on off the toilet and was able to urinate Balance: Her static and dynamic sitting balance are within normal limits. Static standing balance is also normal, and she requires light contact with a wheeled walker for dynamic balance. Gait: She ambulated greater than 100 feet with an FW W weightbearing as tolerated in the right lower extremity with light contact guarding. She is able to ascend and descend steps with a railing with proper technique. She use the railing for support. Articular: Her active right knee motion is -20 to approximately 100 degrees without pain on movement. Passively extension is close to 0 degrees. She is able to actively move her ankle and subtalar joints without restriction or pain. Neuro: Sensations intact in the right lower extremity and she has full motor control of her ankle musculature Home situation: She is greater than 15 steps entering the home so I recommended that she use a crutch along with a railing when ascending/descending stairs, initially with supervision. Treatment time: 40 minutes Treatment: 32739 Assessment: Status post right TKA earlier today. Did well functionally limited with bed mobility but also with her ambulation. All goals attained Plan: Today session consisted of getting the patient out of bed, along with gait training with a FWW along with stair climbing. She was issued a written and illustrated home exercise program consisting of quad and gluteal sets and ankle pumping along with gentle knee flexion extension exercises. I also recommend t hat she elevate her right lower extremities is much as possible during the day when not walking. She has a follow-up appointment with Dr. Campbell in 2 weeks. OBJECTIVE: Informed consent Prior to the start, and throughout the course of the examination, patient was made aware of the specifics of the physical assessment and the purpose of each test and measurement. Appropriate draping procedures were utilized to protect modesty where applicable. Disclaimer: This note was created using [employer] voice recognition software. It was reviewed for major content. However, there may be multiple small discrepancies and errors due to the voice recognition aspects of the software.
--- NOTE | 2022-12-02 14:42 | W.PM.DS.N ---
Date of service: 12/02/22 Time of Service: 07:40 DS: Diagnosis Discharge Diagnosis (1) Degenerative joint disease of right knee: Status: Acute Discharge Plan Disposition Patient Disposition: Home Condition: Good Discharge Details Reason For Visit: Right knee DJD Attending Provider: Rupert Campbell Primary Care Provider: Rowan Dickson V Home Meds and New Rx's Prescriptions: New acetaminophen 500 mg tablet 1,000 mg PO Q8H PRN Qty: 90 0RF Rx Instructions: Take two tablets up to every 8 hours as needed for pain celecoxib [Celebrex] 200 mg capsule 200 mg PO BID PRNQty: 60 0RF Rx Instructions: Take one tablet twice daily for pain and inflammation docusate sodium [Colace] 100 mg capsule 100 mg PO BID Qty: 30 0RF pantoprazole 40 mg tablet,delayed release (DR/EC) 40 mg PO DAILY 14 Days Qty: 14 0RF dexamethasone 4 mg tablet 4 mg PO DAILY Qty: 2 0RF Rx Instructions: Take one tablet once daily for two days gabapentin 300 mg capsule 300 mg PO QHS Qty: 14 0RF Rx Instructions: Take one tablet at bedtime oxycodone 5 mg tablet 5 mg PO Q4H PRNQty: 18 0RF Rx Instructions: Take one tablet up to every 4 hours as needed for severe postoperative pain aspirin 81 mg tablet,delayed release (DR/EC) 81 mg PO BID 30 Days Qty: 60 0RF Continued oxybutynin chloride 10 mg tablet extended release 24hr 10 mg PO DAILY magnesium gluconate 30 MG tablet 75 mg PO DAILY Zostavax (PF) 19,400 UNIT suspension for reconstitution 0.5 ml SQ ONCE Qty: 1 cholecalciferol (vitamin D3) 5,000 UNIT tablet 5,000 unit PO DAILY calcium carbonate 500 MG tablet,chewable 500 mg PO DIRECTED ascorbic acid (vitamin C) 1,000 MG tablet,chewable 1,500 mg PO DAILY Discontinued celecoxib [Celebrex] 200 mg capsule 200 mg PO DAILY Discharge Instructions Additional Instructions: Total Knee Discharge Instructions Activity: The most important activity is to walk and to work on gentle motion (both flexion and extension). You should try to take short walks a few times a day. It is important that when resting you work on keeping the knee straight. Avoid putting a pillow behind the knee as this will encourage flexion. Work on range of motion exercises as provided by Physical Therapy. - Start outpatient physical therapy within 2 weeks. - You should wear the GUSTAVO hose on both legs for 2 weeks. You may remove these at night. You may also use any compression sock in place of the GUSTAVO hose. - Utilize [employer] to review exercises, see videos on exercises and obtain basic information pertaining to your surgery and your recovery. Dressing: Remove the Mandeep wrap by 2 days after your surgery and put on the GUSTAVO stocking given to you from the hospital. Keep the surgical dressing (underneath the MANDEEP wrap) in place for at least one week. After the first week it may be removed and replaced with light gauze and tape or nothing. The wound and dressing may get wet after 3 days but avoid soaking the dressing or otherwise it will need to be changed. Many people prefer covering the dressing with cling wrap (saran wrap) to minimize it from getting soaked. If it gets wet, just pat dry. If it starts to peel off then it will need to be changed. Medications: - You should take Tylenol and anti-inflammatory Celebrex as your primary pain control medications. If the Celebrex is too expensive or not covered, please call the office for another alternative (Advil/Ibuprofen or Naproxen/Aleve) - You have been prescribed a stronger pain medication Oxycodone for breakthrough pain, take as needed as prescribed. - You have also been prescribed a stomach acid reduction agent Pantoprozole to help reduce stomach acid and reflux. - You have been prescribed Gabapentin to take at night for restlessness and nerve pain. - You will be taking Aspirin 81mg twice a day for DVT prevention unless instructed otherwise. - You have also been prescribed Decadron to take to control post-operative nausea and pain. You will start this tomorrow. - If you have constipation you should take Colace (which has been prescribed) or Miralax (which is available [id number]). It takes most people 3-4 days to have a bowel movement. Follow-up: 2 weeks If you have any acute concerns or questions, please do not hesitate to contact the office at [phone]. You may contact Dr. Campbell with any questions after hours through the hospital at [phone] or on his cell phone at [phone]. Stand Alone Forms: Anesthesia Discharge Inst., Anes.Nerve Block Instructions, Ata Hagen (DSU) Referrals: Rupert Campbell MD [ [facility] STAFF PHYSICIAN] - Equipment/Supplies: Walker Activity:: Activity as Tolerated Remove Dressings/Wound Care:: Do Not Remove Shower/Bathe:: Cover Diet:: As Tolerated Discharge Orders Discharge Orders: Discharge Order (Routine); Ordered 12/02/22 Ordered By: Rupert Campbell DS: Summary Time Spent with Patient providing and/or coordinating discharge services: Less than 30 minutes Status at Discharge Functional status at discharge: uses cane/walker Overall status at discharge: patient is progressing back to baseline Mental Status: mental status grossly normal Speech and Movement: speech and movement normal Mood: congruent mood Affect: normal affect Exam Psych Mental Status: mental status grossly normal Speech and Movement: speech and movement normal Mood: congruent mood Affect: normal affect DS: Data Vitals/I&O Vitals and I&O: Intake & Output 12/01/22 12/01/22 12/02/22 11:59 23:59 11:59 Weight 140 lb 140 lb PFSH All Active Problems Hx of ovarian cyst (Acute) Since 2016. . Gallstones (Acute) Contusion of left tibia (Acute) Unspecified hearing loss, left ear (Acute) Abnormal auditory perception (Acute 12/24/15) Internal derangement of right knee (Acute) Degenerative joint disease of right knee (Acute) Depo-Medrol injection: 02/13/2021 Medical History Abdominal pain Constipation Fibrocystic disease of breast Gallbladder polyp Hyperlipidemia She denies INTESTINAL PROBLEMS Memory deficit Mitral valve disease PER PT. STATES MITRAL VALVE PROLAPSE. STATED SHE HAD IT WORKED UP WITH USZANNE A WHILE AGO WAS TOLD NOT TO WORRY ABOUT IT. Overweight Urge incontinence of urine Surgical History Appendectomy (~1962) Colonoscopy - IV Sedation (~2006) & 2000 IN [place], [place] Tonsillectomy (~1950) Family History Mother Neoplasm of breast LATER METS TO BONE Father , PNEUMONIA at age 80. Transient ischemic attack Social History Smoking/Tobacco Use Status: Never Smoking risk assessment performed?: Yes Alcohol Intake: current Alcohol Intake frequency: a few times a week Alcohol type: wine Drug use: Never Substance use type: does not use Housing: house Current gender identity: female Do you feel safe at home: Yes Do you feel safe in your relationship?: Yes
== END 2022-12-02 14:50 | disposition home or self-care (01) ==
PROVIDERS: PCP Family Medicine; Visit Provider Student in an Organized Health Care Education/Training Program
PROC: (CPT 27447; principal; 2022-12-02 09:30)
DX: M17.11 Unilateral primary osteoarthritis, right knee (principal); E78.5 Hyperlipidemia, unspecified; I34.0 Nonrheumatic mitral (valve) insufficiency; R00.1 Bradycardia, unspecified; Z79.899 Other long term (current) drug therapy
CPT/HCPCS: 27447; C1776; 76942; 97162; 93005; 93010; J0690; J1100; J1170; J2371; J2405

== ENCOUNTER 2022-12-15 11:41 | Outpatient (CLI) | payer MEDICARE, SELFPAY ==
--- NOTE | 2022-12-15 10:45 | DI.RAD_ITS ---
Exam(s) XR STANDING ALIGNMENT XR KNEE RT 1V EXAM: XR STANDING ALIGNMENT CLINICAL HISTORY: 1ST POST OP S/P R TKA. TECHNIQUE: 2D digital imaging was performed. Standing AP views were performed from the pelvis throu gh the ankles. COMPARISON: CR XR STANDING ALIGNMENT from 11/27/2022 CR XR KNEE RT 1V from 12/15/2022 FINDINGS: BONES: No acute fracture is present. No bony destructive lesion is seen. Leg length discrepancy: No significant leg length discrepancy. JOINTS: Knees: Status post right knee prosthesis. The alignment appears satisfactory. Moderate to severe narrowing of the medial femoral tibial joint space of the left knee. The ankle joints are unremarkable. The hip joints show mild degenerative changes.. SOFT TISSUE: Soft tissue edema right leg. IMPRESSION: Moderate to severe degenerative changes medial femoral tibial joint left knee. Right knee prosthesi s is unremarkable.. No significant leg length discrepancy. DATA REPOSITORY: RADIATION DOSE DELIVERED:
== END 2022-12-15 11:42 | disposition home or self-care (01) ==
LOC: DIORS 11:41
PROVIDERS: PCP Family Medicine; Referring Provider Family Medicine; Visit Provider Student in an Organized Health Care Education/Training Program
DX: Z96.651 Presence of right artificial knee joint (principal); Z47.1 Aftercare following joint replacement surgery
CPT/HCPCS: 73560; 77073

== ENCOUNTER → 2023-01-16 10:34 | Outpatient (BNVA) | payer MEDICARE, SELFPAY | PROVIDERS: PCP Family Medicine; Referring Provider Family Medicine; Visit Provider Student in an Organized Health Care Education/Training Program | DX: Z47.1 Aftercare following joint replacement surgery (principal); Z96.651 Presence of right artificial knee joint ==

== ENCOUNTER → 2023-02-13 10:48 | Outpatient (BNVA) | payer MEDICARE, SELFPAY | PROVIDERS: PCP Family Medicine; Referring Provider Family Medicine; Visit Provider Student in an Organized Health Care Education/Training Program | DX: Z47.1 Aftercare following joint replacement surgery (principal); T84.82XA Fibrosis due to internal orthopedic prosthetic devices, implants and grafts, initial encounter; Z96.651 Presence of right artificial knee joint ==

== ENCOUNTER → 2023-04-20 10:20 | Outpatient (BNVA) | payer MEDICARE, SELFPAY | PROVIDERS: PCP Family Medicine; Referring Provider Family Medicine; Visit Provider Student in an Organized Health Care Education/Training Program | DX: Z47.1 Aftercare following joint replacement surgery (principal); Z96.651 Presence of right artificial knee joint | CPT/HCPCS: 99213 ==

== ENCOUNTER → 2023-04-22 01:34 | Outpatient (CLI) | payer MEDICARE, SELFPAY ==
--- OUTSIDE RECORDS SUMMARY | 2023-04-22 01:35 | XMS_ITS | Continuity of Care Document ---
Author Name Unknown Organization [facility] Address [address] [place] [address] Care Team Providers Care Business Services Sales Representative Name Role Phone Rowan Dickson Primary Care Physician [phone] Encounter [facility] FIN NBR [id number] Date(s): 03/27/22 - 03/27/22 [facility] [address], [place] [address] Encounter Diagnosis Low back pain(Discharge Diagnosis) - 03/27/22 Bilateral primary osteoarthritis of knee(Discharge Diagnosis) - 03/27/22 Discharge Disposition: Home or Self Care Attending Physician: Andrey Richmond MD Allergies, Adverse Reactions, Alerts Substance Reaction Severity Status codeine unknown Unknown Active penicillin V potassium unknown Unknown Activ e Glutens Unknown Unknown Active Functional Status 03/27/22 Other exposure to Infectious Disease Non e Medications ascorbic acid 1000 mg oral tablet 1 Unknown, 0 Refill(s) Start Date: 03/26/22 Status: Ordered calcium carbonate 500 mg (200 mg elemental calcium) oral tablet, chewable 1 Unknown, 0 Refill(s) Start Date: 03/26/22 Status: Ordered CeleBREX 50 mg oral capsule BID, 1 Unknown, 0 Refill(s) Start Date: 03/26/22 Status: Ordered cholecalciferol 125 mcg/0.5 mL (5000 intl units/0.5 mL) oral liquid 0 Refill(s) Start Date: 03/26/22 Status: Ordered Slow Magnesium Chloride with Calcium 70 mg-117 mg oral delayed release tablet 0 Refill(s) Start Date: 03/26/22 Status: Ordered Problem List Condition Confirmation Course Effective Dates Status H ealth Status Informant Osteoarthritis of right knee joint Confirmed Active Primary gonarthrosis, bilateral Confirmed Active Vital Signs Most recent to oldest [Reference Range]: 1 Peripheral Pulse Rate [60-100 bpm] 67 bp m (03/27/22 12:07 PM) Blood Pressure [90-140/60-90 mmHg] 100/6 5mmHg (03/27/22 12:07 PM) Weight 71.67 kg (03/27/22 12:07 PM) Weight Measured (lbs) 158.005 lb (03/27/22 12:07 PM) Height 165.09 cm (03/27/22 12:07 PM) Height/Length Measured (inches) 65 inch (03/27/22 12:07 PM) BSA Measured 1.81 m2 (03/27/22 12:07 PM) Body Mass Index 26.3 kg/m2 (03/27/22 12:07 PM) Social History Social History Type Response Tobacco Never tobacco user T obacco Use:. Sex Hospital Discharge Instructions Follow Up Care 03/17/2022 10:22:21 With:Patient to call Address: When: Unknown Physician Outpatient Note * Andrey Richmond MD: PERFORM Event Display: Office Clinic Note Physician Authored Date: [id number] OSCAR ESPARZA :1945 Age:76 years Sex:Female Visit Date:03/27/2022 Primary Care Physician: Rowan Dickson Chief Complaint bilateral knee pain and low back pain History of Present Illness The patient presents for follow-up of bilateral knees. ??She is status post bilateral knee Monoviscinjections by Araceli Lombardi PA-C on 11/05/2021. ??She found these to be very helpful although she states that over the last couple of weeks they are beginning to wear off??with??reproduction of pain??particularly with inclement weather.?? She has been performing Chi gong??and pool therapy??which has been helpful.?? She has experienced crepitation of bilateral knees. ??Her right knee is painful medially. ??Bilateral knees are painful anteriorly. ??She states that she has to use her arms to push herself up from the seated position. ??She has even noticed reproduction of right medial knee pain with cycling.?? She has experienced a little bit of chronic swelling. ??She denies locking or catching. ??Her knees will feel unstable when she first gets up. ??She believes that she has been limping but states that this is more habitual at this point. ??She denies numbness or tingling.?? She??has night pain that sometimes wakes her up.?? She has been taking acetaminophen and Celebrex for the last couple of weeks. ??She has also used a topical [place] balm with good relief. ?? The patient also presents for evaluation of??low back pain??principally on the right side. ??Shestates that this is??around her sacral region??and questions whether??abnormal??ambulation may be contributing to this. ??She denies numbness or tingling to??bilateral lower extremities. Physical Exam Vitals & Measurements HR:??67??(Peripheral)?? BP:??100/65?? SpO2:??98%?? HT:??165.09??cm?? WT:??71.67??kg?? BMI:??26.3?? Pain Score:??2?? BSA:??1.81?? The patient's??right??lower extremity is neurovascularly intact. ??Sensation and motor exam are intact distally. ??All digits are warm and pink.?? The right knee demonstrates a mild degree of effusion. ??A 5 degree flexion contracture is present with full flexion from this point. ??She experiences reproduction of anterior and medial knee pain on terminal flexion. ??Foster's test is??positive medially.?? The knee was found to be stable to anterior, posterior, varus, and valgus stress.?? She demonstrates medial greater than lateral joint line tenderness.?? Her patellofemoral joint is nontender although patellofemoral grind test and Elmer Donte signs are positive. ?? The patient's??left??lower extremity is neurovascularly intact. ??Sensation and motor exam are intact distally. ??All digits are warm and pink.?? The right knee demonstrates a mild degree of effusion. ??A 5 degree flexion contracture is present with full flexion from this point. ??She experiences reproduction of anterior and medial knee pain on terminal flexion. ??Foster's test is??positive medially.?? The knee was found to be stable to anterior, posterior, varus, and valgus stress.?? She demonstrates medial greater than lateral joint line tenderness.?? Her patellofemoral joint is nontenderalthough patellofemoral grind test and Elmer Donte signs are positive. ?? The patient demonstrates??tenderness to palpation??about her low lumbosacral region right greater than left. ??She has tenderness about bilateral SI joints, right greater than left. ??Straight legraise is negative.?? She demonstrates mild scoliosis. Assessment/Plan 1.??Low back pain??M54.50 2.??Bilateral primary osteoarthritis of knee??M17.0 The patient demonstrates evidence of recurrence of bilateral knee pain secondary to primary osteoarthritis with mild flexion contractures and effusions.?? The treatment options were discussed with the patient who is encouraged to continue with her exercises.?? As it has not yet been 5 months since her previous injections, I counseled the patient that it is too early to??consider repeat viscosupplementation until at least 6 months??after her??last ones.?? The patient has a trip to [facility] planned for July or August 2022, and I counseled the patient that ideally??she may??achieve??the best benefit by having her repeat injections in June.?? I have advised the patient to work on hamstrings str etch. ??We will also print out the AA OS exercises for the back.?? The patient verbalized understanding and agreed with these recommendations.?? She would like to think about having the injections again. Follow Up Instructions With When Contact Information Patient to call Additional Instructions: Problem List/Past Medical History Ongoing Osteoarthritis of right knee joint Primary gonarthrosis, bilateral Historical No qualifying data Medications ascorbic acid 1000 mg oral tablet calcium carbonate 500 mg (200 mg elemental calcium) oral tablet, chewable CeleBREX 50 mg oral capsule, BID cholecalciferol 125 mcg/0.5 mL (5000 intl units/0.5 mL) oral liquid Slow Magnesium Chloride with Calcium 70 mg-117 mg oral delayed release tablet Allergies Glutens??(Unknown) codeine??(unknown) penicillin V potassium??(unknown) Social History Electronic Cigarette/Vaping Electronic Cigarette Use: Never. Tobacco Never tobacco user Tobacco Use:. Electronically Signed on 03/27/22 12:59 PM Andrey Richmond MD Patient Care team information Personnel Name: Rowan Dickson Address: Address: [address] [address]- [place]
--- OUTSIDE RECORDS SUMMARY | 2023-04-22 01:35 | XMS_ITS | Continuity of Care Document ---
Author Name Unknown Organization [facility] Address [address] [place] [address] Care Team Providers Care Loading Machine Operator Name Role Phone Rowan Dickson Primary Care Physician Encounter [facility] FIN NBR [id number] Date(s): 06/24/22 - 06/24/22 [facility] [address] [place] [address], [place] [address] Encounter Diagnosis Bilateral primary osteoarthritis of knee(Discharge Diagnosis) - 06/24/22 Discharge Disposition: Home or Self Care Attending Physician: RIGO Mendoza Allergies, Adverse Reactions, Alerts Substance Reaction Severity Status codeine unknown Unknown Active penicillin V potassium unknown Unknown Activ e Glutens Unknown Unknown Active Functional Status 06/24/22 Other exposure to Infectious Disease Non e [...] Range]: 1 Peripheral Pulse Rate [60-100 bpm] 82 bp m (06/24/22 11:18 AM) Blood Pressure [90-140/60-90 mmHg] 136/8 2mmHg (06/24/22 11:18 AM) Weight 72.12 kg (06/24/22 11:18 AM) Weight Measured (lbs) 158.997 lb (06/24/22 11:18 AM) Height 162.56 cm (06/24/22 11:18 AM) Height/Length Measured (inches) 64 inch (06/24/22 11:18 AM) BSA Measured 1.8 m2 (06/24/22 11:18 AM) Body Mass Index 27.29 kg/m2 (06/24/22 11:18 AM) Social History Social History Type Response Tobacco Never tobacco user T obacco Use:. Sex Physician Outpatient Note * RIGO Mendoza: PERFORM Event Display: Office Clinic Note Physician Authored Date: [id number] OSCAR ESPARZA :1945 Age:76 years Sex:Female Visit Date:06/24/2022 Primary Care Physician: Rowan Dickson Chief Complaint BILATERAL KNEE PAIN History of Present Illness The patient comes in today with bilateral knee pain due to primary knee osteoarthritis??with mild flexion contractures and effusions. ??She has been working on getting her extension back by placing aweight on her knee while it is up on a coffee table. ??She is finding that this is helpful. ??She is also been going to pool therapy for strengthening. ??She has been going on walks and is trying to do small hills. ??She did get a tracking cane for her trip to [facility]??for stability.?? She has had viscosupplementation in the past and is hoping to get another??series so that??she will??be able to??go on a pill permitted in [facility] with less??knee pain. Physical Exam Vitals & Measurements HR:??82??(Peripheral)?? BP:??136/82?? SpO2:??96%?? HT:??162.56??cm?? WT:??72.12??kg?? BMI:??27.29?? Pain Score:??8?? BSA:??1.8?? General: Alert and oriented x3, pleasant cooperative, in no acute distress, appears to be their stated age, is generally fit appearing.? Bilateral knees: Some crepitance with knee extension. ??Mild effusions bilaterally. ??Mild anterior medial joint line tenderness.?Stable anteriorly and posteriorly. ??Negative varus and valgus stress testing. ??Skin distally is pink warm and dry. ??Full range of motion in all planes with the exception of the loss of 2 or 3 degrees of full extension bilaterally. Assessment/Plan 1.??Bilateral primary osteoarthritis of knee??M17.0 Patient comes in today??with bilateral knee pain due to osteoarthritis. ??She will continue with her strengthening and conditioning. ??I think the pool is a good option for her.?? She also will use an elliptical.?? We will do another series of viscosupplementation prior to her trip. ??We will see her back only as needed. ?? Once consent was obtained, and the correct knees were identified, I prepped the inferolateral aspect of the bilateral knees with 3 swabs of iodine. I then injected, under sterile technique 1 ampule of Monovisc with 40 mg of Kenalog. I then cleansed the areas with alcohol and placed a sterile bandages. Problem List/Past Medical History Ongoing Osteoarthritis of [...] Glutens??(Unknown) codeine??(unknown) penicillin V potassium??(unknown) Social History Alcohol Current, Wine- Comments: 1 GLASS PER WEEK Electronic Cigarette/Vaping Electronic Cigarette Use: Never. Employment/School Retired Tobacco Never tobacco user Tobacco Use:. Electronically Signed on 06/24/22 12:32 PM RIGO Mendoza Patient Care team information Care Team Personnel Name: Rowan Dickson Position: No Access Member Role: Primary Care Physician Address: Address: [address] [place] [id number]
== END ==
PROVIDERS: PCP Family Medicine; Visit Provider Family Medicine
DX: I51.7 Cardiomegaly (principal)
CPT/HCPCS: 93306

== ENCOUNTER → 2023-06-12 01:05 | Outpatient (CLI) | payer MEDICARE, SELFPAY ==
--- OUTSIDE RECORDS SUMMARY | 2023-06-05 00:35 | XMS_ITS | Continuity of Care Document ---
Author Name Unknown Organization [facility] Address [address] [place] [address] Care Team Providers Care Business Process Analyst Name Role Phone EDI DICKSON Primary Care Physician [phone] Encounter [id number] Date(s): 04/21/23 - 04/21/23 [facility] [address] [place], [place] [address] Encounter Diagnosis History of colon polyps(Discharge Diagnosis) - 04/21/23 Discharge Disposition: Home or Self Care Attending Physician: Sanchez Cullen MD Referring Physician: EDI DICKSON Allergies, Adverse Reactions, Alerts Substance Reaction Severity Status codeine unknown Unknown Active penicillin V potassium unknown Unknown Activ e Glutens Unknown Unknown Active Mushroom Unknown Active Medications ascorbic acid 1000 mg oral tablet [...] Effective Dates Status H ealth Status Informant Abdominal bloating Confirmed Active Abdominal pain Confirmed Active Actinic keratosis Confirmed Active Anxiety Confirmed Active Arthritis Confirmed Active Breasts asymmetrical Confirmed Active Change in bowel habit Confirmed Active Chest pain Confirmed Active Congenital nevus Confirmed Active Constipation Confirmed Active Gastric polyp Confirmed Active GERD - Gastro-esophageal reflux disease Confirmed Active Hearing loss Confirmed Active Hiatal hernia Confirmed Active Hip pain Confirmed Active History of gallstones Confirmed Active Hyperlipidemia Confirmed Active Lactose intolerance Confirmed Active Left atrial enlargement Confirmed Active Memory deficit Confirmed Active Mixed incontinence Confirmed Active Neck pain Confirmed Active Osteoarthritis of right knee joint Confirmed Active Osteopenia Confirmed Active Ovarian cyst Confirmed Active Peroneal tendonitis Confirmed Active Plantar fasciitis Confirmed Active Primary gonarthrosis, bilateral Confirmed Active Right lower quadrant pain Confirmed Active Right upper quadrant pain Confirmed Active Seborrheic keratosis Confirmed Active Spider veins Confirmed Active Tortuous sgimoid Confirmed Active Gluten intolerance Confirmed Active UI - Urinary incontinence Confirmed Active Urge urinary incontinence Confirmed Active Vaginal irritation Confirmed Active Varicose veins Confirmed Active Procedures Procedure Date Related Diagnosis Body Site Status Colonoscopy 1 09/08/13 Completed Esophagogastroduodenoscopy 2 09/08/13 Completed Colonoscopy 02/16/07 Completed [facility] Vital Signs Most recent to oldest [Reference Range]: 1 Temperature Temporal Artery [36-38 Deg C ] 36.7 Deg C (04/21/23 11:15 AM) Peripheral Pulse Rate [60-100 bpm] 71 bp m (04/21/23 11:15 AM) Blood Pressure [90-140/60-90 mmHg] 130/8 4mmHg (04/21/23 11:15 AM) Mean Arterial Pressure, Cuff [70-110 mmH g] 99 mmHg (04/21/23 11:15 AM) Weight 72.4 kg (04/21/23 11:15 AM) Weight Measured (lbs) 159.614 lb (04/21/23 11:15 AM) Weight Dosing 72.400 kg (04/21/23 11:15 AM) [place] Body Weight Calculated 56.909 kg (04/21/23 11:15 AM) Height 165 cm (04/21/23 11:15 AM) Height/Length Measured (inches) 64.96 in ch (04/21/23 11:15 AM) BSA Measured 1.82 m2 (04/21/23 11:15 AM) Body Mass Index 26.59 kg/m2 (04/21/23 11:15 AM) Social History Social History Type Response Tobacco Never tobacco user T obacco Use:. Sex Physician Outpatient Note * Sanchez Cullen MD: PERFORM, MODIFY Event Display: Office Clinic Note Physician Authored Date: OSCAR ESPARZA :1945 Age:77 years Sex:Female Visit Date:04/21/2023 Primary Care Physician: EDI DICKSON Chief Complaint schedule colonoscopy History of Present Illness Initial visit. [address] of [address] Dickson sent to schedule colonoscopy for h/o polyps at [facility] over 10 yrs ago. No [facility] records are available. She is currently asymptomatic but had transient epigastric pain/fullnes in June, and self limited diarrhea in November.?? Currently back to baseline. Review of Systems Pertinent positives and negatives are documented in the HPI. Physical Exam Vitals & Measurements T:??36.7?C ??(Temporal Artery)?? HR:??71??(Peripheral)?? BP:??130/84?? SpO2:??99%?? HT:??165??cm?? WT:??72.4??kg?? BMI:??26.59?? BSA:??1.82?? Well-developed well-nourished white female no acute distress Lungs: Clear auscultation bilaterally Heart: Regular rhythm S1-S2 Abdomen: Normoactive bowel sounds, soft nontender, no masses organomegaly Assessment/Plan 1.??History of colon polyps??Z86.010 We will obtain prior [facility] records.?Question adenomatous polyp versus nonneoplastic polyp.? Patient will call us to schedule colonoscopy.?? Follow- up will be based on endoscopic findings. ? Addendum:??Patient underwent bidirectional endoscopy at [facility] on 09/09/2013 for??screening, constipation and bloating.?? EGD showed a 2 cm hiatal hernia and fundic gland polyps.?? Colonoscopy was normal to the terminal ileum.?? Colonoscopy at [facility]??on 02/17/2007??for screening was incomplete??to the mid transverse colon due to tortuous colon??but no abnormalities were noted. Problem List/Past Medical History Ongoing Abdominal bloating Abdominal pain Actinic keratosis Anxiety Arthritis Breasts asymmetrical Change in bowel habit Chest pain Congenital nevus Constipation Gastric polyp GERD - Gastro-esophageal reflux disease Gluten intolerance Hearing loss Hiatal hernia Hip pain History of gallstones Hyperlipidemia Lactose intolerance Left atrial enlargement Memory deficit Mixed incontinence Neck pain Osteoarthritis of right knee joint Osteopenia Ovarian cyst Peroneal tendonitis Plantar fasciitis Primary gonarthrosis, bilateral Right lower quadrant pain Right upper quadrant pain Seborrheic keratosis Spider veins Tortuous sgimoid UI - Urinary incontinence Urge urinary incontinence Vaginal irritation Varicose veins Historical No qualifying data Procedure/Surgical History ???Colonoscopy (09/09/2013)???Esophagogastroduodenoscopy (09/09/2013)???Colonoscopy (02/17/2007) Medications ascorbic acid 1000 mg oral tablet calcium carbonate 500 mg (200 mg elemental calcium) oral tablet, chewable CeleBREX 50 mg oral capsule, BID cholecalciferol 125 mcg/0.5 mL (5000 intl units/0.5 mL) oral liquid Slow Magnesium Chloride with Calcium 70 mg-117 mg oral delayed release tablet Allergies Glutens??(Unknown) Mushroom codeine??(unknown) penicillin V potassium??(unknown) Social History Alcohol Current, Wine- Comments: 1 GLASS PER WEEK Electronic Cigarette/Vaping Electronic Cigarette Use: Never. Employment/School Retired Tobacco Never tobacco user Tobacco Use:. Electronically Signed on 04/21/23 11:46 AM Sanchez Cullen MD Electronically Signed on 04/21/23 01:12 PM Sanchez Cullen MD Patient Care team information Care Team Personnel Name: EDI DICKSON Position: No Access Member Role: Primary Care Physician Address: Address: [address] [place] [phone]
--- NOTE | 2023-06-12 15:00 | DI.DEXA_ITS ---
Exam(s) XR DEXA BONE DENSITY W/WO RALF EXAM: XR DEXA BONE DENSITY W/WO RALF CLINICAL HISTORY: ASYMPTOMATIC MENOPAUSAL STATE Z78.0 TECHNIQUE: COMPARISON: CR LUMBAR SPINE COMPLETE from 09/13/2014 CR XR RIBS LT W PA LAT CHEST from 04/15/2019 FINDINGS: Lateral Spine Image: There is unchanged mild anterior wedging of T12. Left hip: Total T-Score: -0.8 Total Z-Score: 1.1 T- and Z-scores: Within normal limits. No evidence of osteoporosis. Lumbar Spine: Total T-Score: -2.2 Total Z-Score: 0.3 T- and Z-scores: Findings are consistent with osteopenia. There is osteoporosis in the L1 and L2 laurita tebral bodies with T-scores of -3.0 and -2.8 respectively. IMPRESSION: Osteoporosis in the L1 and L2 vertebral bodies.
== END ==
PROVIDERS: PCP Family Medicine; Visit Provider Family Medicine
DX: Z13.820 Encounter for screening for osteoporosis (principal); Z78.0 Asymptomatic menopausal state; M81.0 Age-related osteoporosis without current pathological fracture
CPT/HCPCS: 77080

== ENCOUNTER → 2023-06-22 00:45 | Outpatient (CLI) | payer MEDICARE, SELFPAY ==
--- NOTE | 2023-06-22 | DI.MAMMO_ITS ---
Exam(s) MAMMO SCREENING EXAM: MAMMO SCREENING CLINICAL HISTORY: SCREENING, Z12.31 TECHNIQUE: Mammograms were interpreted according to the usual protocol including computer analysis w [employer] CAD system, tomosynthesis and C-view imaging. COMPARISON: 2011 through 2021 FINDINGS: The breasts are composed of heterogeneously dense fibroglandular densities, Breast Density category C . No suspicious masses or suspicious microcalcifications are seen. No skin thickening or abnormal axillary lymph nodes are seen. There has been no significant change from prior exams. IMPRESSION: BI-RADS Category 1, Negative mammogram. Yearly screening mammography is recommended. Breast Density Category C, heterogeneously Dense. The mammogram demonstrates the patient's breast tissue is dense. Dense breast tissue is very common a nd is not abnormal but dense breast tissue can make it harder to find cancer on a mammogram. Also, de nse breast tissue may increase breast cancer risk. This information about the result of the mammogram report was provided to the patient to raise their awareness. Use this report when you speak with the patient about their risks for breast cancer, which includes their family history. At that time, you may recommend additional screening tests (Ultrasound or MRI) as they might be useful based on their r isk. A negative radiographic report should not delay biopsy if a dominant or clinically suspicious mass is present. Up to ten percent of cancers are not identified on mammography. A negative report may reinforce clinical impression. Adenosis and dense breasts may obscure an underlying neoplasm. False positive reports average 6 to 10%.
== END ==
PROVIDERS: PCP Family Medicine; Visit Provider Family Medicine
DX: Z12.31 Encounter for screening mammogram for malignant neoplasm of breast (principal)
CPT/HCPCS: 77063; 77067

== ENCOUNTER → 2023-06-25 13:02 | Outpatient (BNVA) | payer MEDICARE, SELFPAY | PROVIDERS: PCP Family Medicine; Referring Provider Family Medicine; Visit Provider Physical Therapy Assistant | DX: Z12.11 Encounter for screening for malignant neoplasm of colon (principal) ==

== ENCOUNTER 2023-07-13 11:27 | Day surgery (SDC) | payer MEDICARE, SELFPAY ==
--- NOTE | 2023-07-12 07:08 | W.PM.DSUDISC ---
Date of service: 07/13/23 Time of Service: 13:26 Discharge Plan Disposition Patient Disposition: Home Condition: Good Discharge Details Reason For Visit: screening colonoscopy Attending Provider: Seferino Bull Primary Care Provider: Rowan Dickson V Home Meds and New Rx's Prescriptions: Continued oxybutynin chloride 10 mg tablet extended release 24hr 10 mg PO DAILY Zostavax (PF) 19,400 UNIT suspension for reconstitution 0.5 ml SQ ONCE Qty: 1 ascorbic acid (vitamin C) 1,000 MG tablet,chewable 1,500 mg PO DAILY cholecalciferol (vitamin D3) 125 mcg (5,000 unit) capsule 125 mcg PO DAILY multivitamin with zinc PO Ca carb-Ca gluc-Mg ox-Mg gluco 500 mg calcium -250 mg tablet 1 tab PO DAILY liver support supplement PO memoractive PO glucosamine sulfate [Glucosamine] 500 mg tablet 500 mg PO DAILY Rx Instructions: administer with a meal Discontinued bisacodyl [Dulcolax (bisacodyl)] 5 mg tablet,delayed release (DR/EC) 5 mg PO ONCE Qty: 4 0RF Rx Instructions: Take per colonoscopy instructions provided by ordering providers office polyethylene glycol 3350 17 gram/dose powder 17 g PO ONCE Qty: 238 0RF Rx Instructions: Take per colonoscopy instructions provided by ordering providers office Discharge Instructions Instructions: Hiatal Hernia (GEN), Diverticulosis (GEN), Colorectal Polyps (GEN), Diverticulosis Diet (GEN) Additional Instructions: Olivia, we were able to complete your endoscopies today without much difficulty. Your upper endoscopy is reassuring. You do have a hiatal hernia. I estimate this is a grade 2 (out of 4), and I did not find any particular features of it worrisome. There is also a little bit of bile left in your stomach. This can cause some of the symptoms that you described, so I have added a prescription for a medication called sucralfate, I would like to trial this for a little bit and see if it helps any of your sternal discomfort. I did take several biopsies in your duodenum, stomach, GE junction, and the true esophagus to see if there is anything there that is not evident to the naked eye. Your colonoscopy also went very smoothly. You do have some diverticulosis. Diverticula are little weak spots in the muscular portion of the colon wall. They can get infected and cause pain usually on the left side of the abdomen or lower across the middle. Patients typically feel quite ill when this happens. Often times this is treated with antibiotics. Hopefully, your diverticula never bother you. I have attached a little bit of information here regarding typical approaches to diverticular diseases. I also found a polyp that was quite small, which I removed completely. He will take a week or 2 to get the results of all the biopsies, and at that point I will be in touch with any other recommendations. 1. If tolerated, consume a soft, low fiber diet for 1-2 days. 2. Do not drive, drink alcohol, operate machinery, make critical decisions, or do activities that require coordination or balance for 24 hours. 3. Because air was put into your colon during the procedure, expelling air from your rectum (passing gas or farting) is normal. 4. You may not have a bowel movement for 1-3 days because of the colonoscopy prep. This is normal. 5. Go directly to the emergency room if you notice any of the following: Develop chills (warm to touch), or if you have a thermometer and your temperature is above 101 Difficulty breathing or difficultly swallowing Persistent vomiting Severe abdominal pain, other than gas cramps Severe chest pain Black, tarry stools Any bleeding ? exceeding one tablespoon 6. Call your physician if the site where your intravenous was started becomes red, swollen, painful, and warm to touch. 7. Your physician has reviewed your pre-procedure medications. Please continue to take those medications as previously ordered. You will be given specific information/education regarding any changes to your medications before leaving. Activity:: Activity as Tolerated Diet:: As Tolerated Discharge Orders Discharge Orders: Discharge Order (Routine); Ordered 07/12/23 Ordered By: Seferino Bull DS: Diagnosis Discharge Diagnosis (1) Encounter for screening colonoscopy: Status: Acute
--- NOTE | 2023-07-12 07:10 | W.COLOREPORT ---
Date of service: 07/13/23 Time of Service: 13:33 Colonoscopy Report Date of procedure: 07/13/23 Pre-op diagnosis general: screening colonoscopy Post-op diagnosis procedure note: other (Bile reflux, gastric polyp, diverticulosis, rectal polyp) Procedure: Colonoscopy Surgeon: Seferino Bull Anesthesia Type: General:No Airway Estimated blood loss (mL): 15 Pathology: other (Random biopsies of duodenum, gastric antrum and body, gastric fundic polyp, GE junction, esophagus; 0.25 cm flat rectal polyp) Complications: None Disposition: same day Indications: Olivia is a 77 year old woman who needs her next screening colonoscopy Prep: Miralax/Dulcolax Procedure Start Time: 12:43 Procedure End Time: 13:10 Retraction Time: 7 Findings: Less than 1 cm irregularity of the Z-line at 36 cm, bile reflux, gastric polyp; diverticulosis, rectal polyp Procedure Description: After the initiation of anesthesia, and with the assistance of a bite block, I advanced a standard gastroscope through the mouth past the hypopharynx and into the esophagus.? Under the direct vision of the scope, I advanced down the esophagus toward the stomach.? The upper mid and lower esophagus appeared normal. There was very mild irregularity of the GE junction and Z-line at 36 cm from the incisors. Narrowband imaging was used to assist with analysis. Once I entered the stomach, I performed a brief inspection, followed by retroflexion towards the gastric cardia.? There is a grade 2 hiatal hernia.? There were some small gastric fundic polyps. Again, narrowband imaging was used for examination. These all appeared benign. I did perform cold forcep polypectomy of the largest polyp. It was 0.5 cm.?After that, I gently advanced the scope around the incisura angularis and examined the pylorus. There was some bile reflux into the stomach. Next, I advanced the scope through the pylorus into the duodenum.? The mucosa was pink and healthy appearing.? There were no abnormalities.? I was able to visualize bile draining into the duodenum through the ampulla Vater. ?I perform random biopsies of the duodenum, gastric antrum and body, and the GE junction. All biopsies were performed with cold forceps without any issue. I then emptied the stomach and brought the camera back up along the length of the esophagus 1 last time. Again, there were no obvious gross abnormalities. I did perform some biopsies of the esophagus given the symptoms that the patient describes. Next, we moved Olivia into the left lateral decubitus position. Great care was taken to pad and support her appropriately., I began by performing an external anorectal exam.? Perineum and skin were normal, as was the anal verge.? Next, I performed a digital rectal exam.? I did not appreciate any abnormal findings.? Next, I advanced a colonoscope into the rectal vault.? I performed retroflexion.? There are some simple internal hemorrhoids.? Using insufflation, I then advanced the colonoscope beyond the rectal folds and into the sigmoid colon before advancing towards the cecum.? There was sigmoid diverticulosis.? The scope was noted to be in the cecum by identification of the ileocecal valve and appendiceal orifice.? I then began withdrawing the colonoscope using repeated irrigation as necessary for full evaluation of the colonic mucosa. ?Once the scope was withdrawn to the level of the rectum, great care was taken to examine portions of the rectal folds.? There was a 0.25 cm flat polyp within the rectum that I removed with cold forceps without any significant issues. Finally, the scope was withdrawn and the patient was brought to the same-day surgery recovery unit as the anesthetic wore off. ?The findings and instructions were shared with the patient prior to discharge. [place] Bowel Prep [place] Bowel Prep Right Colon: 3 Left Colon: 3 Transverse Colon: 3 Total Score: 9
[2023-07-13 11:28] VITALS: BP 144/80; PULSE 71; RESP 16; TEMP 36.4; O2SAT 98
[2023-07-13] MEDS: Lactated Ringers 1,000 ML 80 ML IV (12:04)
--- NOTE | 2023-07-13 12:07 | ANES.PREOP_ITS ---
General Info Date of Service Date Performed: 07/13/23 Height: 5 ft 4 in Weight: 63.6 kg Body Mass Index (BMI): 24.0 Surgical Procedure: Operation Date: 07/13/23 12:35 Proposed Procedure Side Surgeon p Colonoscopy/Gastroscopy Seferino Bull MD Meds Allergies and Home Medications Allergies Allergy/AdvReac Type Severity Reaction Status Date / Time codeine Allergy Unknown UNKNOWN Verified 07/13/23 11:38 Penicillins Allergy Unknown UNKNOWN Verified 07/13/23 11:38 gluten AdvReac Unknown upset Verified 07/13/23 11:38 stomach mushrooms AdvReac Mild makes me Uncoded 07/13/23 11:38 cry Home Medication Medication Instructions Recorded zoster vaccine live (PF) 19,400 0.5 ml SQ ONCE #1 vial 07/03/14 unit/0.65 mL subcutaneous suspension (Zostavax (PF)) ascorbic acid (vitamin C) 1,000 mg 1,500 mg PO DAILY 11/14/15 chewable tablet oxybutynin chloride 10 mg 10 mg PO DAILY 07/24/22 tablet,extended release 24 hr calcium carb-Ca gluc 500 mg 1 tab PO DAILY 06/03/23 calcium-magnesium ox-Mg gluc 250 mg tablet cholecalciferol (vitamin D3) 125 125 mcg PO DAILY 06/03/23 mcg (5,000 unit) capsule liver support supplement PO 06/03/23 memoractive PO 06/03/23 multivitamin with zinc PO 06/03/23 glucosamine sulfate 500 mg tablet 500 mg PO DAILY 07/09/23 (Glucosamine) Current Visit Medications: Current Medications Generic Name Dose Route Start Last Admin Trade Name Donq PRN Reason Stop Dose Admin Hyoscyamine Sulfate 0.125 mg 07/13/23 07:11 Hyoscyamine 0.125 Mg Sl/Oral/Chew SL 08/12/23 07:10 DIRECTED PRN Ringer's Solution 1,000 mls @ 80 mls/hr 07/14/23 06:00 07/13/23 12:04 IV 08/09/23 23:59 80 mls/hr INFUSION GAURI Administration IV Miscellaneous Supplies 1 each 07/14/23 06:00 Iv Access IV 08/09/23 23:59 DIRECTED GAURI Ondansetron HCl 4 mg 07/13/23 07:11 Ondansetron 4 Mg/2 Ml Vial IVP 08/12/23 07:10 Q4H PRN PRN Nausea / Vomiting Sodium Chloride 0 ml 07/14/23 06:00 Normal Saline Flush 10 Ml Syr IV 08/09/23 23:59 PRN PRN Sodium Chloride 0 ml 07/14/23 06:00 Normal Saline 10 Ml Vial IJ 08/09/23 23:59 DIRECTED PRN Sterile Water 0 ml 07/14/23 06:00 Water,Injection,Sterile 10 Ml Vial IJ 08/09/23 23:59 DIRECTED PRN PFSH Active Problems Active Problems: Problem Status Onset Code Encounter for screening colonoscopy Z12.11 Situational anxiety F41.8 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 STATES MITRAL VALVE PROLAPSE. STATED SHE HAD IT WORKED UP WITH SU[facility]AN[facility] A WHILE AGO WAS TOLD NOT TO WORRY ABOUT IT. Memory deficit Gallbladder polyp INTESTINAL PROBLEMS Constipation Urge incontinence of urine Overweight Hyperlipidemia She denies Fibrocystic disease of breast Surgical History Surgical History History of total right knee replacement (12/02/22) Tonsillectomy (~1950) Colonoscopy - IV Sedation (~2006) & 2000 IN [facility] 09/09/13 Appendectomy (~1961) Tobacco Smoking/Tobacco Use Status: Former Tobacco Use Alcohol Alcohol Intake: current Alcohol intake frequency: a few times a week Alcohol type: wine Substance Use Substance use: Never Substance use type: does not use Vital Signs and Lab Results Vital Signs Most Recent Vital Signs in EMR: Most Recent Vital Signs Temp Pulse Resp BP Pulse Ox 36.4 C L 71 16 144/80 H 98 07/13/23 11:28 07/13/23 11:28 07/13/23 11:28 07/13/23 11:28 07/13/23 11:28 Lab Results Blood Type / Crossmatch: No Data to Display Complete Blood Count: No Data to Display Complete Metabolic Panel: No Data to Display Liver Function Panel: No Data to Display Coagulation Panel: No Data to Display Cardiac Panel: No Data to Display Arterial Blood Gas: No Data to Display Venous Blood Gas: No Data to Display Pancreas Panel: No Data to Display Thyroid Panel: No Data to Display Infectious Disease: No Data to Display Blood Cultures: No Data to Display Toxicology Panel: No Data to Display Imaging and Studies Imaging and Studies Study information below may be from another EMR and interpreted by another provider. Please see original notes in EMR for more complete details. EKG Summary: 12/02/22: sinus samy, ?LAE Echocardiogram Summary: 08/26: LVEF 65-70%, mild MR, PAS 20-30 mmhg. Anesthesia Assessment and Plan Anesthesia History Personal History: No History of Anesthesia Complications Family History: No Family History of Anesthesia Complications Exercise Tolerance Exercise Tolerance: Metabolic Equivalents>4 Pertinent Negatives Pertinent Negatives: No Major Cardiovascular Symptoms or Complaints, No Major Pulmonary Symptoms or Complaints and No History of CVA/TIA Cardiac & Pulmonary Exam Cardiac Exam: Normal S1/S2 Heart Sounds Pulmonary Exam: Clear Bilateral Breath Sounds Implantable Cardiac Device Does patient have a Pacemaker or an ICD?: No Airway Exam Known Difficult Airway: No Mallampati Class: 3 Mouth Opening: Normal (> 3cm) Thyromental Distance: Greater than 3 cm Neck Range of Motion: Full ROM Neck Circumference: Normal Teeth Condition: Normal Dentition ASA Classification ASA Score: ASA 2 Emergency Case?: No NPO Status NPO Status: NPO Clears >2 hours, Solids >8 hours Anesthesia Plan Resuscitation Status: Full Code Anesthesia Technique: General Anesthesia Airway Planned: Natural Airway Monitors Used: Standard Monitors Preoperative Comments:: Pr reports intermittent reflux and no s/s this am. Pt reports past s/s of substernal chest pain related to esophageal spasms in the past. So s/s now
[2023-07-13 12:11] VITALS: BMI 24.0
--- NOTE | 2023-07-13 12:47 | BOWEL_PTH ---
PATIENT: Olivia Xiao LOC: [facility] U#:[id number] AGE/SX: 77/F ROOM: RE07/13/[address]: Seferino Bull MD : 1945 BED: DIS: 07/13/2023 SPEC #: [id number] RECD: 07/13/23 15:29 STATUS: JOYCE RE #: [id number] THIERRY: 07/13/23 12:[address]: Seferino Bull DEPT: Surgical Specimen RECD BY: Georgette Marquez ENTERED: 07/13/23 15:31 SP TYPE: Bowel OTHR DR: Rowan Dickson V Tissues: 1 - BIOPSY BOWEL 2 - STOMACH BIOPSY 3 - STOMACH BIOPSY 4 - ESOPHAGUS BIOPSY 5 - ESOPHAGUS BIOPSY 6 - BIOPSY BOWEL Procedures: GROSS AND MICRO LEVEL 4 Comments: [id number]
[2023-07-13 13:14] VITALS: BP 115/69; PULSE 61; RESP 16; TEMP 36.5; O2SAT 97
--- NOTE | 2023-07-13 13:44 | W.ANESPOSTOP ---
Postoperative Evaluation Date, Time and Location Date Performed: 07/13/23 Time Performed: 13:16 Patient Location: Day Surgery Unit Vital Signs Most Recent Imported Vital Signs: Most Recent Vital Signs Temp Pulse Resp BP Pulse Ox 36.5 C 61 16 115/69 97 07/13/23 13:14 07/13/23 13:14 07/13/23 13:14 07/13/23 13:14 07/13/23 13:14 Pain Score Most Recent Pain Score: Most Recent Pain Score Pain Level 0 07/13/23 13:14 Assessment Mental Status: Awake (Alert & Oriented to Patient Baseline) Airway and Respiratory Function: Patent airway with normal (patient baseline) respiratory exam Cardiovascular Function: Hemodynamically Stable Hydration Status: Adequately Hydrated Nausea & Vomiting: No Nausea or Vomiting Pain: Pt. Denies Any Pain Peripheral Nerve Block: Patient did not receive a nerve block
[2023-07-13 13:47] VITALS: BP 144/89; PULSE 67; RESP 16; TEMP 36.5; O2SAT 98
== END 2023-07-13 11:28 | disposition home or self-care (01) ==
LOC: SUR 11:27
PROVIDERS: PCP Family Medicine; Visit Provider Surgery
PROC: (CPT 45380; principal; 2023-07-13 12:30)
DX: Z12.11 Encounter for screening for malignant neoplasm of colon (principal); K62.1 Rectal polyp; K31.7 Polyp of stomach and duodenum; K57.30 Diverticulosis of large intestine without perforation or abscess without bleeding; K21.9 Gastro-esophageal reflux disease without esophagitis; K22.9 Disease of esophagus, unspecified; K64.8 Other hemorrhoids
CPT/HCPCS: 45380; 43239; 88305; J2001; J2704

== ENCOUNTER 2023-10-14 05:09 | Outpatient (RCR) | payer MEDICARE, SELFPAY ==
[2023-10-14] MEDS: ZOLEDRONIC ACID/MANNITOL/WATER 5 MG/100 ML BTL 300 MG IVPB (14:17)
[2023-10-14] MEDS: Normal Saline Flush 10 ML SYR IVP (14:18)
== END 2023-11-08 23:59 | disposition home or self-care (01) ==
LOC: INF 05:09
PROVIDERS: PCP Family Medicine; Visit Provider Nurse Practitioner Acute Care
DX: M81.0 Age-related osteoporosis without current pathological fracture (principal)
CPT/HCPCS: 96365; J3489

== ENCOUNTER 2023-11-03 12:31 | Outpatient (REF) | payer MEDICARE, SELFPAY ==
[2023-11-03 15:25] LABS: HCT 37.6 % (36.0-46.0); HGB 12.1 g/dL (11.2-15.7); MCHC 32.2 % (32.0-36.0); MCV 96 fL (80-95); MPV 10.3 fL (8.0-11.0); Platelet Count 265 10^3/uL (130-400); RDW 13.1 % (11.7-14.6); RDW-SD 46.4 fL
[2023-11-03 15:42] LABS: ALT 27 U/L (14-59); AST 16 U/L (15-37); Albumin 3.9 g/dL (3.4-5.0); Alkaline Phosphatase 84 U/L (46-116); Anion Gap 6.7 mmol/L (3-11); BUN 16 mg/dL (7-18); Bilirubin, Total 0.58 mg/dL (0.2-1.0); CO2 29.3 mmol/L (21.0-32.0); CREATININE 0.6 mg/dL (0.55-1.02); Calcium 8.9 mg/dL (8.5-10.1); Chloride 106 mmol/L (98-107); Estimated GFR 92.39 (mL/min/1.73m2); Glucose 97 mg/dL (74-106); NT-proBNP 117 pg/mL (<300); Potassium 4.3 mmol/L (3.5-5.1); Sodium 142 mmol/L (136-145); Total Protein 6.4 g/dL (6.4-8.2)
[2023-11-04 10:19] LABS: IgA 70 mg/dL (85-499); Interpretation (See Note); Tissue Transglutaminase IgA <4.0 CU (<20.0)
[2023-11-05 08:53] LABS: C-Reactive Protein < 0.50 mg/dL (<or=0.5)
== END 2023-11-03 12:32 | disposition home or self-care (01) ==
LOC: NCHCN 12:31
PROVIDERS: PCP Family Medicine; Visit Provider Family Medicine
DX: Z87.19 Personal history of other diseases of the digestive system (principal); M54.9 Dorsalgia, unspecified; I51.7 Cardiomegaly
CPT/HCPCS: 80053; 82784; 83516; 85027; 83880; 86140

== ENCOUNTER → 2023-11-17 01:50 | Outpatient (CLI) | payer MEDICARE, SELFPAY ==
--- NOTE | 2023-11-17 | DI.RAD_ITS ---
Exam(s) XR THORACIC SPINE COMPLETE XR CHEST 2V PA LATERAL EXAM: XR CHEST 2V PA LATERAL CLINICAL HISTORY: RESP CRACKLES,R09.89 TECHNIQUE: 2D digital imaging was performed. Two views. COMPARISON: CR LUMBAR SPINE COMPLETE from 09/13/2014 CR XR RIBS LT W PA LAT CHEST from 04/15/2019 CR XR DEXA BONE DENSITY W/WO RALF from 06/12/2023 CR XR THORACIC SPINE COMPLETE from 11/17/2023 FINDINGS: HEART: Normal size. Aorta: Tortuous. PULMONARY VASCULATURE: Normal. MEDIASTINUM: Unremarkable. LUNGS: Clear. PLEURAL SPACE: No pleural effusion or pneumothorax. BONE:Unremarkable degenerative changes. Scoliosis, convex toward the right in the thoracic region an d convex toward the left in the lumbar region. Mild T12 compression fracture. SOFT TISSUES: Unremarkable. IMPRESSION: No acute abnormality. Stable mild T12 compression fracture. Degenerative changes and scoliosis of the thoracic spine. DATA REPOSITORY: RADIATION DOSE DELIVERED:
== END ==
PROVIDERS: PCP Family Medicine; Visit Provider Family Medicine
DX: M54.9 Dorsalgia, unspecified (principal); R09.89 Other specified symptoms and signs involving the circulatory and respiratory systems; M41.24 Other idiopathic scoliosis, thoracic region; S22.080A Wedge compression fracture of T11-T12 vertebra, initial encounter for closed fracture
CPT/HCPCS: 71046; 72072

== ENCOUNTER 2023-12-07 11:32 | Outpatient (CLI) | payer MEDICARE, SELFPAY ==
--- NOTE | 2023-12-07 10:30 | DI.RAD_ITS ---
Exam(s) XR KNEE RT 2V AP,LAT EXAM: XR KNEE RT 2V AP,LAT INDICATION: ANNUAL F/U R TKA. COMPARISON: CR XR KNEE RT 1V from 12/15/2022 CR XR STANDING ALIGNMENT from 12/15/2022 TECHNIQUE: 2D digital imaging was performed. Two views. FINDINGS: Stable alignment of total knee prosthesis. Small joint effusion. No bony abnormality. Impression: Stable appearance of knee prosthesis. DATA REPOSITORY: RADIATION DOSE DELIVERED:
== END 2023-12-07 11:33 | disposition home or self-care (01) ==
LOC: DIORS 11:32
PROVIDERS: PCP Family Medicine; Referring Provider Family Medicine; Visit Provider Student in an Organized Health Care Education/Training Program
DX: Z96.651 Presence of right artificial knee joint (principal); Z47.1 Aftercare following joint replacement surgery
CPT/HCPCS: 99213; 73560

== ENCOUNTER 2024-02-25 11:30 | Outpatient (CLI) | payer MEDICARE, SELFPAY ==
[2024-02-25 16:45] LABS: HCT 41.5 % (36.0-46.0); HGB 13.8 g/dL (11.2-15.7); MCH 31.5 pg (27.0-33.0); MCHC 33.3 % (32.0-36.0); MCV 95 fL (80-95); MPV 9.6 fL (8.0-11.0); Platelet Count 265 10^3/uL (130-400); RBC 4.38 10^6/uL (3.93-5.22); RDW 12.9 % (11.7-14.6); RDW-SD 45.1 fL; WBC 4.22 10^3/uL (4.4-10.8)
[2024-02-25 18:17] LABS: Vitamin B12 470 pg/mL (193-986)
[2024-02-25 18:19] LABS: Folate > 20.0 ng/mL (8.6-20.0)
[2024-02-29 11:38] LABS: IgA 71 mg/dL (85-499); Interpretation (See Note); Tissue Transglutaminase IgA <4.0 CU (<20.0)
== END 2024-02-25 11:31 | disposition home or self-care (01) ==
LOC: LBO 11:30
PROVIDERS: PCP Family Medicine; Visit Provider Family Medicine
DX: R19.4 Change in bowel habit (principal)
CPT/HCPCS: 36415; 82784; 83516; 85027; 82108; 82607; 82746

== ENCOUNTER 2024-03-08 14:28 | Outpatient (CLI) | payer MEDICARE, SELFPAY | END 2024-03-08 14:29 | disposition home or self-care (01) | LOC: LBO 14:32 | PROVIDERS: PCP Family Medicine; Visit Provider Family Medicine | DX: T50.905A Adverse effect of unspecified drugs, medicaments and biological substances, initial encounter (principal) | CPT/HCPCS: 36415; 82108 ==

== ENCOUNTER 2024-08-30 01:18 | Outpatient (CLI) | payer MEDICARE, SELFPAY ==
--- NOTE | 2024-08-30 16:00 | DI.MAMMO_ITS ---
Exam(s) MAMMO SCREENING EXAM: MAMMO SCREENING CLINICAL HISTORY: Z12.31 Screening Mammo TECHNIQUE: Bilateral full field digital CC and MLO mammographic images were obtained with 3D tomosyn thesis and utilizing computer aided detection (CAD). COMPARISON: Available for comparison. FINDINGS: Masses/Architectural Distortion: No suspicious masses or areas of architectural distortion are presen t. Microcalcifications: No suspicious pleomorphic-type are seen. Skin Thickening/Nipple Retraction: None. IMPRESSION: 1. No significant interval change with no specific features of malignancy noted. 2. Unless there is more urgent need, screening mammography is recommended, as per [employer] guidelines. BI-RADS Category 1 - Negative Breast Density - Category C - Heterogeneously dense Breast density category C or D implies that the patient has dense breast tissue. Dense breast tissue is very common and is not abnormal but dense breast tissue can make it harder to find cancer on a ma mmogram. Also, dense breast tissue may increase their breast cancer risk. This information about the result of the mammogram report was provided to the patient to raise their awareness. Use this report when you speak with the patient about their risks for breast cancer, which includes their family hist ory. At that time, you may recommend for more screening tests (Ultrasound or MRI) as they might be us eful based on their risk. A negative radiographic report should not delay biopsy if a dominant or clinically suspicious mass is present. Up to ten percent of cancers are not identified on mammography. A negative report may reinforce clinical impression. Adenosis and dense breasts may obscure an underlying neoplasm. False positive reports average 6 to 10%. Patient will receive a letter notifying them of these results.
== END 2024-08-30 01:38 ==
LOC: DI 01:18
PROVIDERS: PCP Family Medicine; Visit Provider Family Medicine
DX: Z12.31 Encounter for screening mammogram for malignant neoplasm of breast (principal); R92.333 Mammographic heterogeneous density, bilateral breasts
CPT/HCPCS: 77063; 77067

== ENCOUNTER 2024-09-26 02:32 | Outpatient (CLI) | payer MEDICARE, SELFPAY ==
--- NOTE | 2024-09-26 10:20 | DI.RAD_ITS ---
Exam(s) XR LUMBAR SPINE COMPLETE EXAM: XR LUMBAR SPINE COMPLETE CLINICAL HISTORY: BACKACHE,DORSALGIA,M54.9. TECHNIQUE: 2D digital imaging was performed of the lumbar spine. Six images were obtained. AP, lat eral, right oblique, left oblique and L5-S1 spot views were obtained. COMPARISON: CR LUMBAR SPINE COMPLETE from 09/13/2014 CR XR DEXA BONE DENSITY W/WO RALF from 06/12/2023 FINDINGS: BONES: No fracture or destructive lesion. Endplate osteophytes are seen at multiple levels of the lum bar spine, but most marked at the L2-3 and L3-4 level. There is stable mild anterior wedging of T12. No facet hypertrophy identified. DISKS: There is disc space narrowing at L1-L2, L3-L4 and L4-L5. ALIGNMENT: There is a left convex lumbar scoliosis. No spondylolysis or spondylolisthesis. SOFT TISSUE: There calcifications in the right upper quadrant most consistent with cholelithiasis. IMPRESSION: 1. Progression of the degenerative changes in the lumbar spine since the prior examination from 2014. Moderately severe degenerative changes are now present. The findings are most marked at the L3-L4 level. 2. Left convex lumbar scoliosis. 3. Cholelithiasis. DATA REPOSITORY: RADIATION DOSE DELIVERED:
--- NOTE | 2024-09-26 10:21 | DI.RAD_ITS ---
Exam(s) XR THORACIC SPINE COMPLETE EXAM: XR THORACIC SPINE COMPLETE CLINICAL HISTORY: BACKACHE,DORSALGIA,M54.9. TECHNIQUE: 2D digital imaging was performed. Three views. COMPARISON: CR XR DEXA BONE DENSITY W/WO RALF from 06/12/2023 CR XR THORACIC SPINE COMPLETE from 11/17/2023 FINDINGS: BONES: Stable mild T12 compression fracture. There is no new fracture or destructive lesion. The laurita tebral bodies and posterior elements are unremarkable. ALIGNMENT: Midthoracic dextroscoliosis. DISKS: Disc space narrowing in the mid to lower thoracic spine. Small endplate osteophytes. SOFT TISSUE: Visualized lungs are clear. IMPRESSION: Stable scoliosis and mild T12 compression fracture. DATA REPOSITORY: RADIATION DOSE DELIVERED:
== END 2024-09-26 02:52 ==
LOC: DI 02:32
PROVIDERS: PCP Family Medicine; Visit Provider Family Medicine
DX: S22.080D Wedge compression fracture of T11-T12 vertebra, subsequent encounter for fracture with routine healing; X58.XXXD Exposure to other specified factors, subsequent encounter; K80.80 Other cholelithiasis without obstruction; M51.360 Other intervertebral disc degeneration, lumbar region with discogenic back pain only
CPT/HCPCS: 72072; 72110

== ENCOUNTER 2024-12-02 15:22 | Outpatient (REF) | payer MEDICARE, SELFPAY ==
[2024-12-02 15:15] LABS: HCT 40.4 % (36.0-46.0); HGB 13.3 g/dL (11.2-15.7); MCH 30.9 pg (27.0-33.0); MCHC 32.9 % (32.0-36.0); MCV 94 fL (80-95); MPV 10.3 fL (8.0-11.0); Platelet Count 249 10^3/uL (130-400); RBC 4.30 10^6/uL (3.93-5.22); RDW 12.8 % (11.7-14.6); RDW-SD 43.8 fL; WBC 4.45 10^3/uL (4.4-10.8)
[2024-12-02 15:20] LABS: ESR 4 mm/hr (0-30)
[2024-12-02 15:44] LABS: C-Reactive Protein < 0.50 mg/dL (<or=0.5)
[2024-12-02 16:05] LABS: Hemoglobin A1C 5.5 % (<5.7)
[2024-12-05 09:43] LABS: BUN 13 mg/dL (7-18); Chloride 102 mmol/L (98-107); Estimated GFR 88.47 (mL/min/1.73m2); Glucose 97 mg/dL (74-106); Potassium 4.7 mmol/L (3.5-5.1); Sodium 140 mmol/L (136-145)
== END 2024-12-02 15:23 | disposition home or self-care (01) ==
LOC: NCHCN 15:22
PROVIDERS: PCP Family Medicine; Visit Provider Family Medicine
DX: Z13.1 Encounter for screening for diabetes mellitus (principal); M13.869 Other specified arthritis, unspecified knee
CPT/HCPCS: 82947; 84520; 85027; 85652; 82435; 82565; 83036; 84132; 84295; 86140

== ENCOUNTER 2024-12-27 01:50 | Outpatient (RCR) | payer MEDICARE, SELFPAY ==
[2024-12-27] MEDS: Normal Saline Flush 10 ML SYR IVP (11:55)
== END 2025-01-08 23:59 | disposition home or self-care (01) ==
LOC: INF 01:50
PROVIDERS: PCP Family Medicine; Visit Provider Student in an Organized Health Care Education/Training Program
DX: M81.0 Age-related osteoporosis without current pathological fracture (principal)
CPT/HCPCS: 96365; J3489